=== PATIENT | female | born 1960 | race Caucasian/White ===

== ENCOUNTER 2022-09-19 20:33 | Inpatient (IN) | payer OTHER, SELFPAY ==
[2022-09-19] MEDS: SODIUM CHLORIDE 3% 500 ML 10 ML IV (15:48)
[2022-09-19 21:07] VITALS: BP 135/74; PULSE 88; O2SAT 94
[2022-09-19 21:08] VITALS: O2SAT 94
[2022-09-19 21:12] VITALS: PULSE 87; RESP 22; TEMP 37.4; O2SAT 95
[2022-09-19 22:00] VITALS: BP 113/70; PULSE 89; RESP 25; O2SAT 91
[2022-09-19 22:01] VITALS: PULSE 96; RESP 16; O2SAT 93
--- NOTE | 2022-09-19 22:09 | HPE_ITS ---
Date of service: 09/19/22 Time of Service: 22:09 Assessment and Plan Assessment and plan (1) Hyponatremia: Status: Acute Assessment and plan: Ms Pierson was transferred from [facility] due to her severe hyponatremia for ICU level of care. I discussed the case with Dr. Rosales and reviewed his notes. Given the patient's lack of regular medical care, we don't know the chronicity of her hyponatremia, but the acute illness and some vomiting and decreased oral intake suggest hypovolemic hyponatremia that is at least partially acute. Her very low urine sodium is consistent with this. Her naseua and loose stools cough be related to hyponatremia though they could also simply be the influenza, so it is unclear if she is sympotomatic at all. Unfortunately, during the time of transfer the sodium is went up faster than the goal of 6mEq in the first 24 hours despite a low infusion rate of 3% saline. This is likely due to some diuresis. Clearly she is at risk for rapid reversal, which is more typical in patients with alcohol use and liver disease. Given this, am am adding desmopressin to help control the diuresis as we slowly replace the sodium. I am also stopping the 3% sodium for now. My goal at this point is to get the sodicum to 125 and then leave it there until tomorrow afternoon. (2) Influenza A: Status: Acute Assessment and plan: Influenza A positive, but she has been sick for over a week already. SHe is here for the low sodium, and it not having severe symptom from the flu. Given this, I will not treat with tamilfu. However she does have an exam and CXR consistent with possible COPD, and her cough and chest tightness is her main complaint. GIven this, I will trial albuterol/ipratropium nebs and treat with oral prednisone. (3) Alcohol use disorder: Status: Acute Assessment and plan: Her alcohol use is constistent with AUD. She is ambivalent aboutg stopping. We discussed options to help. SHe is at risk for alcohol withdrawal but has not shown signs of this yes. MOnitor on CIWA. (4) Smoker: Status: Acute Assessment and plan: precontemplative. She requests nicotene inhaler for now. (5) Alcoholic hepatitis: Status: Acute Assessment and plan: She has signs of mild alcholic hepatitis. Follow. (6) DVT prophylaxis: Status: Acute Assessment and plan: LMWH (7) Discharge planning issues: Status: Acute Assessment and plan: She is stable in the ICU for sever hyponatremia monitoring. History of Present Illness History of Present Illness Chief Complaint: cough, fever, malaise Narrative: 62 yo smoker and daily alcohol drinker who has not seen a medical provider in 4- 5 years who presented to [facility] emergency room this afternoon for 8-9 days of cough feverishness, and post-tussive emesis. Her symptoms started with congestion and rhinorrhea, headache, and cough. Headache and nasal symptom improved, but cough getting worse. She feels like her chest is full and she can't bring it up, though she doesn't feel short of breath when she isn't coughing. When she vomits after coughing, it is watery, no blood or coffee grounds. She has had 2-3 loose stools/day. No blood or melena. She denies any abdominal pain, though she has some general body aches. She has very little appetites, she has been drinking fluids but she hasn't had much to eat, even crackers are hard to eat. Regarding her alcohol, she drinks an average of 6 beers a night, a little less since she has been sick. She denies any history of severe withdrawal or seizures. She has had sober episodes of 6 months and 5 years in the past, but she doesn't want to quit now. She also denies any history of low sodium. Pt was given 25mL 3% saline after 500mL normal saline, then continued on 10mL/hr. Sodium went up to 113, so 3% saline was cut to 2.5mL/hr. After another hour the sodium was 109 again, so the patient was placed back on 10mL/hr 3% saline since then. Review of Systems Constitutional Constitutional: Reports as per HPI, Reports body ache(s), Denies chills, Reports lethargy and Reports poor appetite Eyes Eyes: Denies change in vision and Denies irritation ENT Ears, Nose, Mouth, and Throat: Reports as per HPI, Denies dizziness and Denies sore throat Cardiovascular Cardiovascular: Denies chest pain, Denies leg edema, Denies palpitations and Reports dyspnea on exertion Respiratory Respiratory: Denies hemoptysis and Reports dyspnea on exertion Gastrointestinal Gastrointestinal: Reports as per HPI, Denies abdominal pain, Denies melena, Denies hematochezia and Denies heartburn Genitourinary Genitourinary: Denies hematuria, Denies dysuria and Denies urinary incontinence Integumentary/Breasts Skin/Breast: Denies rash and Denies skin ulcer Neurologic Neurologic: Denies abnormal movements, Denies behavioral changes, Denies dizziness, Denies localized weakness, Denies convulsions, Denies sensory deficit and Denies tremor(s) Psychiatric Psychiatric: Denies behavioral changes and Denies mood swings Endocrine Endocrine: Denies palpitations Hematologic/Lymphatic Hematologic/Lymphatic: Denies easy bleeding PFSH All Active Problems (Updated 09/19/22 @ 23:31 by Kevin Foster) Discharge planning issues (Acute) DVT prophylaxis (Acute) Alcoholic hepatitis (Acute) Smoker (Acute) Hyponatremia (Acute) Alcohol use disorder (Acute) Influenza A (Acute) Surgical History S/P section Family History (Updated 09/19/22 @ 22:28 by Kevin Foster) Brother Heart disease 2 brothers in 40s Mother Dementia Social History (Updated 09/19/22 @ 22:30 by Kevin Foster) Smoking/Tobacco Use Status: Current every day Counseling given: provider counseling and counseling >3 minutes Smoking risk assessment performed?: Yes Alcohol Intake: current Alcohol Intake frequency: 3 or more drinks per day Alcohol type: beer Counseling given: Yes Counseling provided: reduce to 2 or less/day and support program Substance use type: does not use Additional Social history: Moved from [facility] to [facility] 2019, now living with Mother in [place] and serving as her caregiver. 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 Meds Allergies and Home Medications Allergies Allergy/AdvReac Type Severity Reaction Status Date / Time Sulfa (Sulfonamide Allergy Unverified 09/19/22 20:36 Antibiotics) Home Medications Medication Instructions Recorded Confirmed Type cholecalciferol (vitamin D3) 25 1,000 unit PO DAILY 09/19/22 09/19/22 History mcg (1,000 unit) capsule (Vitamin D3) cyanocobalamin (vitamin B-12) 25 25 mcg PO DAILY 09/19/22 09/19/22 History mcg tablet multivitamin with minerals-folic 2 tab PO DAILY 09/19/22 09/19/22 History acid 200 mcg chewable tablet (Multivitamin Gummies) Exam Narrative Exam Narrative: GEN: Alert and oriented, pleasant and cooperative, gives linear history. No acute distress at rest. HEENT: Head atraumatic. Conjunctiva clear, no icterus. PEERL, EOMI. no rhinorrhea. MMM, OP mildly streaky red, no exudate.. Neck is supple with no masses or lymphadenopathy, trachea midline LUNGS: Normal effort, but slight expiratory wheeze with deep breath, prolonged expiration. no rales. CV: RRR with no murmurs, gallops, or rubs. ABD: +BS, soft, NT/ND EXT: no cyanosis, clubbing, or edema MSK: No joint redness or swelling NEURO: CN 2-12 grossly intact. Normal movement of 4 extremities. Normal speech and coordination. no tremor or asterixis SKIN: No rashes or open wounds. PSYCH: normal mood and affect Results Imaging Chest x-ray: report reviewed (from [facility]: mild chronic air trapping with no lobar consolidation. no acute cardiopulmonary abnormality) EKG: report reviewed (From [facility] sinus, rate 84, q waves in 1 and AVL, no ST elevation) Labs 09/19/22 21:49 Labs: See notes from [facility]: Notable for hgb of 16.8, sodium 109, potassium of 3.4, ch loride of 72. AST 90, ALT 131. Creatinine of 0.69. Mg of 1.4. Urine sodium <15. u/a significant only for SG of 1010 and 1+ protein. Last Vital Signs Temp 37.4 C 09/19/22 21:12 Pulse 87 09/19/22 21:12 Resp 22 09/19/22 21:12 Pulse Ox 95 09/19/22 21:12 PAWSS Have you Ever Experienced Previous Episodes of Alcohol Withdrawal?: No Have you ever Experienced Withdrawal Seizures?: No Have you ever Experienced Delirium Tremens(DT)s?: No Result: 0 Time Spent Time spent with Patient: >75 minutes Time was spent: preparing to see the patient(eg.review tests), obtaining and/or reviewing separately otained hiistory, ordering medications,tests, procedures, referring, communicating with other health group care worker, indepentently interpreting results and counseling the patient
[2022-09-19 22:23] LABS: Anion Gap 7.3 mmol/L (3-11); BUN 6 mg/dL (7-18); CO2 27.7 mmol/L (21.0-32.0); CREATININE 0.5 mg/dL (0.55-1.02); Calcium 8.5 mg/dL (8.5-10.1); Chloride 84 mmol/L (98-107); Estimated GFR 106.64 (mL/min/1.73m2); Glucose 87 mg/dL (74-106)
[2022-09-19 22:25] LABS: Sodium 119 mmol/L (136-145)
[2022-09-19] MEDS: Albuterol/Ipratropium 3 ML UPD VIAL UPD (22:42)
[2022-09-19] MEDS: predniSONE 20 MG TAB 40 MG PO (22:42)
[2022-09-19 23:12] VITALS: PULSE 90; RESP 1; RESP 12; RESP 8; O2SAT 95
[2022-09-19] MEDS: Normal Saline Flush 10 ML SYR IVP (23:44)
[2022-09-20] VITALS (27 sets, daily range): BP systolic 95–134; BP diastolic 52–93; PULSE 69–92; RESP 2–28; TEMP 36–37.4; O2SAT 88–98
[2022-09-20 00:42] LABS: Sodium 119 mmol/L (136-145)
[2022-09-20] MEDS: Albuterol/Ipratropium 3 ML UPD VIAL UPD ×2 (02:10→23:28)
[2022-09-20 02:45] LABS: Sodium 118 mmol/L (136-145)
[2022-09-20 06:47] LABS: PHOSPHORUS 2.7 mg/dL (2.6-4.7)
[2022-09-20 06:50] LABS: ALT 85 U/L (14-59); AST 162 U/L (15-37); Albumin 2.9 g/dL (3.4-5.0); Alkaline Phosphatase 94 U/L (46-116); Anion Gap 8.9 mmol/L (3-11); BUN 6 mg/dL (7-18); Bilirubin, Total 0.3 mg/dL (0.2-1.0); CO2 25.1 mmol/L (21.0-32.0); CREATININE 0.5 mg/dL (0.55-1.02); Calcium 8.4 mg/dL (8.5-10.1); Chloride 85 mmol/L (98-107); Estimated GFR 106.64 (mL/min/1.73m2); Glucose 170 mg/dL (74-106); Total Protein 6.5 g/dL (6.4-8.2)
[2022-09-20 07:03] LABS: Potassium 2.7 mmol/L (3.5-5.1); Sodium 119 mmol/L (136-145)
[2022-09-20] MEDS: Enoxaparin 40 MG/0.4 ML SYR SC (08:02)
[2022-09-20] MEDS: DEXTROSE 5%-WATER 1,000 ML 75 ML IV (08:02)
[2022-09-20] MEDS: POTASSIUM CHLORIDE 20 MEQ/100 ML BAG 50 MEQ IVPB (08:03)
[2022-09-20] MEDS: Cholecalciferol (Vitamin D3) 1,000 UNIT TAB 1000 UNITS PO (08:04)
[2022-09-20] MEDS: Cyanocobalamin 500 MCG TAB 1000 MCG PO (08:04)
[2022-09-20] MEDS: Thiamine 100 MG TAB PO (08:04)
[2022-09-20] MEDS: Multivitamin TAB 2 TAB PO (08:04)
[2022-09-20] MEDS: predniSONE 20 MG TAB 40 MG PO (08:05)
[2022-09-20] MEDS: Potassium Chloride 20 MEQ TABCR 40 MEQ PO (08:05)
[2022-09-20] MEDS: Folic Acid 1 MG TAB PO (08:06)
--- NOTE | 2022-09-20 08:39 | INITIAL_ITS ---
- If Service Date Differs Date of service: 09/20/22 Time of Service: 08:39 Care Management Initial Assess REASON FOR HOSPITALIZATION:: Hyponatremia PAST MEDICAL HISTORY/PAST SURGICAL HISTORY:: All Active Problems (Updated 09/19/22 @ 23:31 by Kevin Foster). Discharge planning issues (Acute). DVT prophylaxis (Acute). Alcoholic hepatitis (Acute). Smoker (Acute). Hyponatremia (Acute). Alcohol use disorder (Acute). Influenza A (Acute). Surgical History . S/P section PREVIOUS FUNCTIONAL STATUS/SOCIAL/FAMILY SUPPORTS:: Haydee lives in [place], [place] and cares for her mother who has dementia. Haydee has 3 daughters. One daughter lives in [place], one in [place] and the third one is a meat puller who lives in [place]. 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 She is independent and active at baseline. CURRENT FUNCTIONAL STATUS:: Haydee was sitting up in bed when CM met with her. She is ill appearing and was coughing throughout the conversation. In addition to hyponatremia, Haydee has had Influenza A for the past week. At the time of the visit, Haydee was receiving IV potassium and was complaining of extreme burning at the site. She asked that the visit be postponed until she was more comfortable. Per providers and staff, Haydee consumes alcohol on a daily basis and does not wish to stop. 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 CM returned and met with Haydee a second time. Her IV was more comfortable and she was more conversant than previously. CM asked about Haydee's alcohol consumption and her desire to seek treatment. She stated that she does not feel that her drinking is a problem at this time. She admitted that during Cov when she was essentially quarantined for months with a gentelman she was caring for, it had been a problem. She informed NOELLE that she is scheduled for an intake appointment at [facility] in [place] next week as she is feeling stress with the responsibility of caring for her mother without much assistance. Her mother has [facility] high highest and Haydee is paid through [employer] to care for her. Additional caregivers were hired through [employer] but have not ever iniated services and it has been over 3 months. Haydee has 7 siblings and plans to have a family meeting to encourage them to assist with their mother's care, at least for a few hours a week. ADVANCE DIRECTIVES:: none on file Has patient been provided with info about the portal/API?: Yes Did the patient sign up for the portal?: No CODE STATUS:: Full Code INSURANCE COVERAGE / FINANCIAL ISSUES:: [employer] CURRENT HOME/COMMUNITY SERVICES/EQUIPMENT:: Food [place] and [employer] Whe[employer]. Mother has [facility] high highest through [facility] and Haydee is her paid caregiver PRIMARY CARE PHYSICIAN:: none. has not seen a physician in 4-5 years POTENTIAL DISCHARGE NEEDS:: needs to establish with a PCP. Possible treatment for Alcohol use disorder PATIENT/FAMILY EDUCATION NEEDS:: Review of discharge instructions, activity, limitations, follow up plan, discuss Ask Me Three TRANSPORTATION:: via private vehicle with friend/family PLAN:: Anticipate Haydee will be discharged home with no new services when medically cleared by provider. She will follow up with the PCP appointment that will be scheduled for her and the plan of care as prescribed. She will transport via [facility] vs private vehicle with family. CM will follow and assess for discharge planning concerns.
[2022-09-20 08:40] LABS: Lab Add On Test DONE
--- NOTE | 2022-09-20 09:07 | PGE_ITS ---
Date of Service Date of service: 09/20/22 Time of Service: 09:09 Assessment and Plan Assessment and plan (1) Hyponatremia: Status: Acute Assessment and plan: Hypertonic saline already d/c'ed. On DDAVP. On D5W this am since sodium is 119. Monitor sodiums Q4 Hrs. Recheck chemistry at 10 am to assess if D5W can be stopped. We are going to find out her baseline sodium from [facility] if they have that information. (2) Influenza A: Status: Acute Assessment and plan: Continue nebs, prednisone. Add mucinex, tessalon, cepacol. Procalcitonin is pending, but the patient does describe purulent sputum - will add doxycycline/ceftriaxone. Add acapella. Obtain sputum cx. (3) Alcoholic hepatitis: Status: Acute Assessment and plan: Check PT and calculate discriminant function score. (4) Alcohol use disorder: Status: Acute Assessment and plan: Monitor on CIWA. Check B12/folate levels. BMI of 18 kg/m2 - c/s nutrition. (5) Smoker: Status: Acute Assessment and plan: Continue nicotrol inhaler. (6) DVT prophylaxis: Status: Acute Assessment and plan: LMWH (7) Discharge planning issues: Status: Acute Assessment and plan: Full code Keep in ICU. Total Critical Care Time 40 minutes. Subjective Subjective Interval history since last seen: Haydee is reporting cough productive of green sputum which has been difficult to bring up and a sore throat. She denies dizziness, headache, visual changes, chest pain, shortness of breath, nausea. She has a hard time swallowing pills. She requests another ensure clear. Exam Narrative Exam Narrative: General: Pleasant middle-aged female who does not look obviously malnourished, A&Ox3, eating breakfast, coughing, on RA HEENT: EOMI, MMM Heart: RRR, no m/r/g Lungs: Coarse breath sounds B Abdomen: soft, nontender, nondistended Extremities: no edema BLEs, dry skin Objective Last Vital Signs Temp 36.9 C 09/20/22 08:00 Pulse 69 09/20/22 08:00 Resp 20 09/20/22 08:00 BP 130/93 H 09/20/22 08:00 Pulse Ox 96 09/20/22 08:00 Laboratory Results - last 24 hr 09/19/22 09/20/2209/20/23 22:00 00:20 02:22 Sodium 119 L* 119 L* 118 L* Potassium 4.0 Chloride 84 L Carbon Dioxide 27.7 Anion Gap 7.3 BUN 6 L Creatinine 0.5 L Est GFR (CKD-EPI 2020) 106.64 Glucose 87 Calcium 8.5 Phosphorus Magnesium Total Bilirubin AST ALT Alkaline Phosphatase Total Protein Albumin Add-On Test Request 09/20/22 09/20/22 09/20/22 05:20 05:20 05:20 Sodium 119 L* Cancelled Potassium 2.7 L* D Chloride 85 L Carbon Dioxide 25.1 Anion Gap 8.9 BUN 6 L Creatinine 0.5 L Est GFR (CKD-EPI 2020) 106.64 Glucose 170 H Calcium 8.4 L Phosphorus 2.7 Magnesium 2.0 Total Bilirubin 0.3 AST 162 H ALT 85 H Alkaline Phosphatase 94 Total Protein 6.5 Albumin 2.9 L Add-On Test Request 09/20/22 05:20 Sodium Potassium Chloride Carbon Dioxide Anion Gap BUN Creatinine Est GFR (CKD-EPI 2020) Glucose Calcium Phosphorus Magnesium Total Bilirubin AST ALT Alkaline Phosphatase Total Protein Albumin Add-On Test Request DONE PAWSS Have you Ever Experienced Previous Episodes of Alcohol Withdrawal?: No Have you ever Experienced Withdrawal Seizures?: No Have you ever Experienced Delirium Tremens(DT)s?: No Result: 0 Multi-Disciplinary Checklist Lines/Tubes CENTRAL LINE: no ARTERIAL LINE: no TRAN: no ENDOTRACHEAL TUBE: no ICU Maintenance GLUCOSE 140-180mg/dL: yes NUTRITION AT GOAL: no, Reason/Intervention: nutrition consulted PRESSURE ULCER: no RESTRAINTS: no ANTIBIOTICS(if yes, consider Stewardship): Yes Social Issues FAMILY UPDATED: no, Reason/Intervention: Patient able to update family PT/OT: no, GOALS/DISPOSITION/PROCEDURE TECH: yes CODE STATUS: Full Prophylaxis DVT PROPHYLAXIS: yes GI PROPHYLAXIS: yes, Indication: on steroids - pepcid Time Spent with Patient Time Spent with Patient: 35-49 minutes Time was spent: preparing to see the patient(eg.review tests), obtaining and/or reviewing separately otained hiistory, ordering medications,tests, procedures, referring, communicating with other health memory care program resident, indepentently interpreting results, counseling the patient and care coordination
[2022-09-20 09:18] LABS: Procalcitonin 0.4 ng/mL
[2022-09-20] MEDS: guaiFENesin 600 MG TABCR PO ×2 (09:43→19:58)
[2022-09-20] MEDS: cefTRIAXone 1 GM/50 ML BAG IVPB (09:43)
[2022-09-20] MEDS: Benzonatate 200 MG CAP PO ×3 (09:43→19:58)
[2022-09-20] MEDS: Famotidine 20 MG TAB PO (09:43)
[2022-09-20 10:16] LABS: Anion Gap 9.3 mmol/L (3-11); BUN 6 mg/dL (7-18); CO2 24.7 mmol/L (21.0-32.0); CREATININE 0.7 mg/dL (0.55-1.02); Calcium 8.2 mg/dL (8.5-10.1); Chloride 85 mmol/L (98-107); Estimated GFR 98.34 (mL/min/1.73m2); Glucose 213 mg/dL (74-106)
[2022-09-20 10:18] LABS: Sodium 119 mmol/L (136-145)
[2022-09-20 10:21] LABS: INR 1.1 (0.9-1.1); Prothrombin Time 11.1 sec (9.3-11.0)
[2022-09-20] MEDS: DOXYCYCLINE 100 MG in Normal Saline 100 ML IVPB ×2 (10:28→22:07)
[2022-09-20 15:00] LABS: Anion Gap 8.6 mmol/L (3-11); BUN 7 mg/dL (7-18); CO2 23.4 mmol/L (21.0-32.0); CREATININE 0.5 mg/dL (0.55-1.02); Calcium 8.1 mg/dL (8.5-10.1); Chloride 84 mmol/L (98-107); Estimated GFR 106.64 (mL/min/1.73m2); Glucose 123 mg/dL (74-106); Potassium 3.5 mmol/L (3.5-5.1)
[2022-09-20 15:11] LABS: Sodium 116 mmol/L (136-145)
[2022-09-20] MEDS: guaiFENesin/CODEINE PHOSPHATE 10 ML CUP PO (18:22)
[2022-09-20 18:41] LABS: Anion Gap 7.6 mmol/L (3-11); BUN 7 mg/dL (7-18); CO2 23.4 mmol/L (21.0-32.0); CREATININE 0.6 mg/dL (0.55-1.02); Calcium 8.1 mg/dL (8.5-10.1); Chloride 83 mmol/L (98-107); Estimated GFR 102.06 (mL/min/1.73m2); Glucose 131 mg/dL (74-106); Potassium 3.6 mmol/L (3.5-5.1)
[2022-09-20 18:46] LABS: Sodium 114 mmol/L (136-145)
[2022-09-20] MEDS: Normal Saline Flush 10 ML SYR IVP (19:58)
[2022-09-20] MEDS: SODIUM CHLORIDE 3% 500 ML 13 ML IV (20:02)
[2022-09-20 22:20] LABS: Anion Gap 8.5 mmol/L (3-11); BUN 6 mg/dL (7-18); CO2 23.5 mmol/L (21.0-32.0); CREATININE 0.5 mg/dL (0.55-1.02); Calcium 8.1 mg/dL (8.5-10.1); Chloride 82 mmol/L (98-107); Estimated GFR 106.64 (mL/min/1.73m2); Glucose 153 mg/dL (74-106); Potassium 3.6 mmol/L (3.5-5.1)
[2022-09-20 22:25] LABS: Sodium 114 mmol/L (136-145)
[2022-09-21] VITALS (45 sets, daily range): BP systolic 106–151; BP diastolic 66–125; PULSE 66–92; RESP 17–31; TEMP 36.1–36.5; O2SAT 92–99; BMI 18.8
[2022-09-21] MEDS: LORazepam 1 MG TAB PO/SL ×2 (00:51→10:22)
[2022-09-21 02:22] LABS: Anion Gap 5.3 mmol/L (3-11); BUN 5 mg/dL (7-18); CO2 25.7 mmol/L (21.0-32.0); CREATININE 0.4 mg/dL (0.55-1.02); Calcium 7.8 mg/dL (8.5-10.1); Chloride 84 mmol/L (98-107); Estimated GFR 112.53 (mL/min/1.73m2); Glucose 126 mg/dL (74-106); Potassium 3.2 mmol/L (3.5-5.1)
[2022-09-21 02:23] LABS: Sodium 115 mmol/L (136-145)
[2022-09-21 05:54] LABS: Anion Gap 6.2 mmol/L (3-11); BUN 4 mg/dL (7-18); CO2 25.8 mmol/L (21.0-32.0); CREATININE 0.4 mg/dL (0.55-1.02); Calcium 8.2 mg/dL (8.5-10.1); Chloride 84 mmol/L (98-107); Estimated GFR 112.53 (mL/min/1.73m2); Glucose 120 mg/dL (74-106); Magnesium 1.3 mg/dL (1.8-2.4)
[2022-09-21 05:55] LABS: Sodium 116 mmol/L (136-145)
[2022-09-21 05:56] LABS: Potassium 2.9 mmol/L (3.5-5.1)
[2022-09-21 06:24] LABS: Vitamin B12 1377 pg/mL (193-986)
--- NOTE | 2022-09-21 06:40 | NUR.NOTE ---
Nursing Note: Breakfast request called to kitchen. (Apple-Fruited Lao Yogurt-Rice Krispies)
[2022-09-21 08:03] LABS: ALT 62 U/L (14-59); AST 74 U/L (15-37); Albumin 2.7 g/dL (3.4-5.0); Alkaline Phosphatase 82 U/L (46-116); Bilirubin, Direct 0.2 mg/dL (0.0-0.2); Bilirubin, Total 0.3 mg/dL (0.2-1.0)
--- NOTE | 2022-09-21 09:03 | ANES.PREOP_ITS ---
General Info Date of Service Date Performed: 09/21/22 Height: 5 ft Weight: 43.9 kg Body Mass Index (BMI): 18.8 Meds Allergies and Home Medications Allergies Allergy/AdvReac Type Severity Reaction Status Date / Time Sulfa (Sulfonamide Allergy Unverified 09/19/22 20:36 Antibiotics) Home Medication Medication Instructions Recorded cholecalciferol (vitamin D3) 25 1,000 unit PO DAILY 09/19/22 mcg (1,000 unit) capsule (Vitamin D3) cyanocobalamin (vitamin B-12) 25 25 mcg PO DAILY 09/19/22 mcg tablet multivitamin with minerals-folic 2 tab PO DAILY 09/19/22 acid 200 mcg chewable tablet (Multivitamin Gummies) Current Visit Medications: Current Medications Generic Name Dose Route Start Last Admin Trade Name Freq PRN Reason Stop Dose Admin Acetaminophen 0 mg 09/19/22 21:50 Acetaminophen 325 Mg Tab PO Q4H PRN PRN Albuterol/Ipratropium 3 ml 09/19/22 22:02 09/20/22 23:28 Albuterol/Ipratropium 3 Ml Upd Vial UPD 3 ml Q6H PRN PRN Administration Benzocaine/Menthol 1 each 09/20/22 09:08 09/20/22 15:49 Benzocaine/Menthol Lozg 18/Box SUC 1 each Q6H PRN PRN Administration Benzonatate 200 mg 09/20/22 14:00 09/20/22 19:58 Benzonatate 200 Mg Cap PO 200 mg TID HEATHER Administration Cholecalciferol 1,000 units 09/20/22 08:30 09/20/22 08:04 Cholecalciferol (Vitamin D3) 1,000 Unit Tab PO 1,000 units DAILY HEATHER Administration Cyanocobalamin 1,000 mcg 09/20/22 08:30 09/20/22 08:04 Cyanocobalamin 500 Mcg Tab PO 1,000 mcg DAILY HEATHER Administration Desmopressin Acetate 2 mcg 09/20/22 19:15 09/21/22 03:28 Desmopressin 40 Mcg/10 Ml Vial IV 2 mcg Q8H HEATHER Administration Dimethicone/Zinc Oxide 0 gm 09/19/22 20:33 Leroy Protect Cream 142 Gm Tube TP PRN PRN Enoxaparin Sodium 40 mg 09/20/22 08:30 09/20/22 08:02 Enoxaparin 40 Mg/0.4 Ml Syr SC 40 mg Q24H HEATHER Administration Famotidine 20 mg 09/21/22 08:30 Famotidine 20 Mg Tab PO DAILY HEATHER Folic Acid 1 mg 09/20/22 08:30 09/20/22 08:06 Folic Acid 1 Mg Tab PO 09/26/22 08:31 1 mg QAM HEATHER Administration Guaifenesin 600 mg 09/20/22 20:00 09/20/22 19:58 Guaifenesin 600 Mg Tabcr PO 600 mg BID HEATHER Administration Guaifenesin/Codeine Phosphate 10 ml 09/20/22 14:57 09/20/22 18:22 Guaifenesin/Codeine Phosphate 10 Ml Cup PO 10 ml Q4H PRN PRN Administration Doxycycline Hyclate 100 mg/ 100 mls @ 100 mls/hr 09/20/22 10:00 09/20/22 23:37 Sodium Chloride IVPB Infused Q12H HEATHER Infusion Ceftriaxone Sodium/Dextrose 1 gm in 50 mls @ 100 mls/hr 09/20/22 10:00 09/20/22 11:27 Rocephin IVPB Infused Q24H HEATHER Infusion Sodium Chloride (Hypertonic) 500 mls @ 13 mls/hr 09/20/22 19:15 09/20/22 20:02 Sodium Chloride 3% IV 09/21/22 19:14 13 mls/hr INFUSION HEATHER Administration Magnesium Sulfate 4 gm in 100 mls @ 25 mls/hr 09/21/22 07:44 IVPB 09/21/22 11:43 NOW ONE Potassium Chloride 20 meq in 100 mls @ 50 mls/hr 09/21/22 07:44 IVPB 09/21/22 09:43 NOW ONE Lorazepam 0 mg 09/19/22 21:50 09/21/22 00:51 Lorazepam 1 Mg Tab PO/SL 1 mg DIRECTED PRN Administration Magnesium Chloride 64 mg 09/21/22 08:30 Magnesium Chloride 64 Mg Tabcr PO BID HEATHER Multivitamins 2 tab 09/20/22 08:30 09/20/22 08:04 Multivitamin Tab PO 2 tab DAILY HEATHER Administration Nicotine 30 cartridge 09/19/22 21:57 09/19/22 22:43 Nicotine 10 Mg/Cartridge 30 Cart/Pkg IH 1 cartridge DIRECTED PRN Administration Potassium Chloride 40 meq 09/21/22 08:30 Potassium Chloride Liquid 20 Meq Pkt PO BID HEATHER Prednisone 40 mg 09/20/22 08:30 09/20/22 08:05 Prednisone 20 Mg Tab PO 40 mg DAILY HEATHER Administration Sodium Chloride 0 ml 09/19/22 23:03 09/20/22 19:58 Normal Saline Flush 10 Ml Syr IVP 20 ml PRN PRN Administration Thiamine HCl 100 mg 09/20/22 08:30 09/20/22 08:04 Thiamine 100 Mg Tab PO 09/26/22 08:31 100 mg QAM HEATHER Administration PFSH Active Problems Active Problems: Problem Status Onset Code Hyponatremia E87.1 Alcohol use disorder F10.90 Influenza A J10.1 Alcoholic hepatitis K70.10 Smoker F17.200 Discharge planning issues Z02.9 DVT prophylaxis Z29.9 Surgical History Surgical History S/P section Tobacco Smoking/Tobacco Use Status: Current every day Counseling given: provider counseling and counseling >3 minutes Alcohol Alcohol Intake: current Alcohol intake frequency: 3 or more drinks per day Alcohol type: beer Counseling provided: reduce to 2 or less/day and support program Substance Use Substance use type: does not use Vital Signs and Lab Results Vital Signs Most Recent Vital Signs in EMR: Most Recent Vital Signs Temp Pulse Resp BP Pulse Ox 36.1 C L 77 24 132/71 93 09/21/22 08:00 09/21/22 08:00 09/21/22 08:01 09/21/22 08:00 09/21/22 08:01 Lab Results 09/21/22 05:25 Blood Type / Crossmatch: No Data to Display Complete Blood Count: No Data to Display Complete Metabolic Panel: Sodium 116 mmol/L (136-145) L* 09/21/22 05:25 Potassium 2.9 mmol/L (3.5-5.1) L 09/21/22 05:25 Chloride 84 mmol/L (98-107) L 09/21/22 05:25 Carbon Dioxide 25.8 mmol/L (21.0-32.0) 09/21/22 05:25 BUN 4 mg/dL (7-18) L 09/21/22 05:25 Creatinine 0.4 mg/dL (0.55-1.02) L 09/21/22 05:25 Est GFR (CKD-EPI 2020) 112.53 (mL/min/1.73m2) 09/21/22 05:25 Magnesium 1.3 mg/dL (1.8-2.4) L 09/21/22 05:25 Calcium 8.2 mg/dL (8.5-10.1) L 09/21/22 05:25 Albumin 2.7 g/dL (3.4-5.0) L 09/21/22 05:25 Glucose 120 mg/dL (74-106) H 09/21/22 05:25 Liver Function Panel: Alanine Aminotransferase (ALT/SGPT) 62 U/L (14-59) H 09/21/22 0 5:25 Aspartate Amino Transf (AST/SGOT) 74 U/L (15-37) H 09/21/22 05: 25 Coagulation Panel: INR International Normalized Ratio 1.1 (0.9-1.1) 09/20/22 09:5 8 Prothrombin Time 11.1 sec (9.3-11.0) H 09/20/22 09:58 Cardiac Panel: No Data to Display Arterial Blood Gas: No Data to Display Venous Blood Gas: 2 No Data to Display Pancreas Panel: No Data to Display Thyroid Panel: No Data to Display Infectious Disease: No Data to Display Blood Cultures: No Data to Display Toxicology Panel: No Data to Display Anesthesia Assessment and Plan Anesthesia History Personal History: No History of Anesthesia Complications Family History: No Family History of Anesthesia Complications Exercise Tolerance Exercise Tolerance: Metabolic Equivalents>4 Pertinent Negatives Pertinent Negatives: No Symptoms of GERD, No Major Cardiovascular Symptoms or Complaints and No History of CVA/TIA Cardiac & Pulmonary Exam Cardiac Exam: Normal S1/S2 Heart Sounds Pulmonary Exam: Active Cough or Cold (Positive influenza, on droplet precautions) Implantable Cardiac Device Does patient have a Pacemaker or an ICD?: No Airway Exam Known Difficult Airway: No Mallampati Class: 2 Mouth Opening: Normal (> 3cm) Thyromental Distance: Greater than 3 cm Neck Range of Motion: Full ROM Neck Circumference: Normal Teeth Condition: Normal Dentition ASA Classification ASA Score: ASA 3 Emergency Case?: Yes NPO Status NPO Status: NPO Clears >2 hours, Solids >8 hours Anesthesia Plan Resuscitation Status: Full Code Anesthesia Technique: General Anesthesia Airway Planned: Natural Airway Monitors Used: Standard Monitors and POCUS Preoperative Comments:: Preop for placement of Central Venous Catheter being requested by the hospitalist, Dr. Gaines, for hyponatremia.
--- NOTE | 2022-09-21 09:05 | W.ANESVAS ---
Central Venous Line Placement Date Performed: 09/21/22 Procedure Time: 11:16 Procedure Location: Intensive Care Unit ([facility]) Requesting Provider: Heather Gaines Standard Monitors Applied: ECG, Blood Pressure, SpO2 and See EMR for corresponding vital signs Pt. Position: Supine Trendelenburg Timeout Performed: Yes Sedation Given (Indicate Dose Given): Directed by Requesting Provider (Patient received her PO PRN for anxiety. ) Patient Mental Status: Sedate with meaningful communication Sterility: Hand Hygiene, Surgical Cap, Surgical Mask, Sterile Gloves, Sterile Drape/Sheet, Sterile Gown, Eye Protection and Chlorhexidine Laterality: Right Insertion Site: Internal Jugular (IJ) Central Line Type: 7 Togolese and Triple Lumen Catheter Insertion Procedure: 1% Lidocaine to skin and subcutaneous tissue with 25g needle, Vessel accessed with needle, Guidewire placed with ease, Extension tubing fills with blood, then empties easily with gravity, Dermatotomy (skin blas) made with scalpel, Dilator placed without resistance, Introducer/Catheter placed without resistance, Guidewire removed and Claves placed, blood withdrawn, ports flushed and clamped Dressing: Sorbaview Dressing Placed, Chlorhexidine Dressing, BioPatch and Sutured in Place Catheter Depth at Skin (cm): 15 Placement Confirmation: Confirmation X-Ray Ordered Ultrasound: Sterile probe cover and gel used Ultrasound Image Saved?: Yes Number of Attempts (See previous attempts in note section): 2 Procedure Tolerated: No Complications and Patient tolerated well Procedure Outcome: Successful Performed By: Jones Eubanks
[2022-09-21] MEDS: guaiFENesin/CODEINE PHOSPHATE 10 ML CUP PO (10:22)
--- NOTE | 2022-09-21 11:00 | DI.RAD_ITS ---
Exam(s) XR PORTABLE CHEST AP POST LINE EXAM: XR PORTABLE CHEST AP POST LINE CLINICAL HISTORY: central line placement. TECHNIQUE: 2D digital imaging was performed. COMPARISON: No exams were available for comparison FINDINGS: Single AP portable view. Heart size is upper normal. The mediastinum is not widened. Lungs are clear. No infiltrates nor obvious pleural effusions. Right jugular central line noted. Its distal tip is in the lower SVC. No pneumothorax. IMPRESSION: No acute pulmonary findings on this single AP portable view of the chest. Jugular line distal tip is in the SVC which is satisfactory position. DATA REPOSITORY: RADIATION DOSE DELIVERED:
[2022-09-21] MEDS: Thiamine 100 MG TAB PO (11:30)
[2022-09-21] MEDS: Famotidine 20 MG TAB PO (11:30)
[2022-09-21] MEDS: DOXYCYCLINE 100 MG in Normal Saline 100 ML IVPB ×2 (11:30→22:18)
[2022-09-21] MEDS: MAGNESIUM SULFATE 4 GM/100 ML BAG IVPB (11:30)
--- NOTE | 2022-09-21 11:36 | DI.VRAD_ITS ---
PROCEDURE INFORMATION: Exam: XR Chest Exam date and time: 09/21/2022 11:06 AM Age: 62 years old Clinical indication: Other: Central line placement TECHNIQUE: Imaging protocol: Radiologic exam of the chest. Views: 1 view. COMPARISON: No relevant prior studies available. FINDINGS: Tubes, catheters and devices: Central line terminates in the superior vena cava. Lungs: Unremarkable. No consolidation. Pleural spaces: Unremarkable. No pleural effusion. No pneumothorax. Heart/Mediastinum: Unremarkable. No cardiomegaly. Bones/joints: Unremarkable. IMPRESSION: Central line terminates in the superior vena cava. Dictated and Authenticated by: Ilana Farrell MD. Ordering:DANIAL Goldman MD
[2022-09-21] MEDS: cefTRIAXone 1 GM/50 ML BAG IVPB (11:39)
[2022-09-21] MEDS: Enoxaparin 40 MG/0.4 ML SYR SC (11:43)
[2022-09-21] MEDS: Magnesium Chloride 64 MG TABCR PO ×2 (11:43→20:25)
[2022-09-21] MEDS: Benzonatate 200 MG CAP PO ×3 (11:43→20:25)
[2022-09-21] MEDS: Potassium Chloride Liquid 20 MEQ PKT 40 MEQ PO ×2 (11:44→20:25)
[2022-09-21] MEDS: Multivitamin TAB 2 TAB PO (11:44)
[2022-09-21] MEDS: guaiFENesin 600 MG TABCR PO ×2 (11:44→20:25)
[2022-09-21] MEDS: predniSONE 20 MG TAB 40 MG PO (11:45)
[2022-09-21] MEDS: Folic Acid 1 MG TAB PO (11:45)
[2022-09-21] MEDS: Cholecalciferol (Vitamin D3) 1,000 UNIT TAB 1000 UNITS PO (11:45)
[2022-09-21] MEDS: Cyanocobalamin 500 MCG TAB 1000 MCG PO (11:46)
[2022-09-21] MEDS: POTASSIUM CHLORIDE 20 MEQ/100 ML BAG 50 MEQ IVPB (11:51)
[2022-09-21 12:19] LABS: Anion Gap 4.5 mmol/L (3-11); BUN 4 mg/dL (7-18); CO2 27.5 mmol/L (21.0-32.0); CREATININE 0.4 mg/dL (0.55-1.02); Calcium 8.1 mg/dL (8.5-10.1); Chloride 88 mmol/L (98-107); Estimated GFR 112.53 (mL/min/1.73m2); Glucose 98 mg/dL (74-106)
[2022-09-21 12:20] LABS: Potassium 2.8 mmol/L (3.5-5.1); Sodium 120 mmol/L (136-145)
[2022-09-21 13:52] LABS: Anion Gap 6.9 mmol/L (3-11); BUN 4 mg/dL (7-18); CO2 26.1 mmol/L (21.0-32.0); CREATININE 0.5 mg/dL (0.55-1.02); Calcium 8.1 mg/dL (8.5-10.1); Chloride 85 mmol/L (98-107); Estimated GFR 106.64 (mL/min/1.73m2); Glucose 143 mg/dL (74-106); Potassium 3.3 mmol/L (3.5-5.1)
[2022-09-21 14:03] LABS: Sodium 118 mmol/L (136-145)
--- NOTE | 2022-09-21 14:38 | PGE_ITS ---
Date of Service Date of service: 09/21/22 Time of Service: 09:20 Assessment and Plan Assessment and plan (1) Hyponatremia: Status: Acute Assessment and plan: Hypertonic saline was restarted last night. Continue DDAVP + hypertonic saline while checking sodiums every 6 hrs. The chemistries should be checked peripherally. Baseline sodium is anywhere between 128-135, per review of prior records from [facility]. (2) Influenza A: Status: Acute Assessment and plan: With suspected superimposed bacterial bronchitis. Continue nebs, prednisone, mucinex, tessalon, cepacol. Encourage pulmonary toilet. (3) Alcoholic hepatitis: Status: Acute Assessment and plan: Maddrey score of 0.8 indicates a good prognosis.. (4) Alcohol use disorder: Status: Acute Assessment and plan: Monitor on CIWA. Per daughter, patient does have a h/o withdrawal, which was prolonged. As her CIWA score started to increase, will switch to phenobarbital protocol. BMI of 18 kg/m2 - c/s nutrition. (5) Smoker: Status: Acute Assessment and plan: Continue nicotrol inhaler. (6) DVT prophylaxis: Status: Acute Assessment and plan: LMWH (7) Discharge planning issues: Status: Acute Assessment and plan: Full code Keep in ICU. Total Critical Care Time 40 minutes. Discussed with daughter. Subjective Subjective Interval history since last seen: Ms Pierson denies pain, feels a little short of breath. States thought her cough was getting better but then again woke up with it this morning. Denies n/v. Nursing reports that the patient has had difficulty tolerating IV infusion of hypertonic saline. Discussed with anesthesia: central line placement was recommended and placed by Jones Eubanks CRNA. Exam Narrative Exam Narrative: General: Pleasant middle-aged female, anxious, A&Ox3, coughing, on RA HEENT: EOMI, MMM Heart: RRR, no m/r/g Lungs: Coarse breath sounds B, coughing Abdomen: soft, nontender, nondistended Extremities: no edema BLEs, dry skin Objective Last Vital Signs Temp 36.2 C L 09/21/22 13:16 Pulse 77 09/21/22 08:00 Resp 24 09/21/22 13:16 BP 132/71 09/21/22 08:00 Pulse Ox 93 09/21/22 13:16 Laboratory Results - last 24 hr 09/20/22 09/20/22 09/20/22 14:28 18:25 22:00 Sodium 116 L* 114 L* 114 L* Potassium 3.5 3.6 3.6 Chloride 84 L 83 L 82 L Carbon Dioxide 23.4 23.4 23.5 Anion Gap 8.6 7.6 8.5 BUN 7 7 6 L Creatinine 0.5 L 0.6 0.5 L Est GFR (CKD-EPI 2020) 106.64 102.06 106.64 Glucose 123 H 131 H 153 H Calcium 8.1 L 8.1 L 8.1 L Magnesium Total Bilirubin Conjugated Bilirubin AST ALT Alkaline Phosphatase Total Protein Albumin Vitamin B12 Folate 09/21/22 09/21/22 09/21/22 02:05 05:25 05:25 Sodium 115 L* 116 L* Potassium 3.2 L 2.9 L Chloride 84 L 84 L Carbon Dioxide 25.7 25.8 Anion Gap 5.3 6.2 BUN 5 L 4 L Creatinine 0.4 L 0.4 L Est GFR (CKD-EPI 2020) 112.53 112.53 Glucose 126 H 120 H Calcium 7.8 L 8.2 L Magnesium 1.3 L Total Bilirubin Conjugated Bilirubin AST ALT Alkaline Phosphatase Total Protein Albumin Vitamin B12 1377 H Folate 13.0 09/21/22 09/21/22 09/21/22 05:25 11:58 13:25 Sodium 120 L* 118 L* Potassium 2.8 L* 3.3 L Chloride 88 L 85 L Carbon Dioxide 27.5 26.1 Anion Gap 4.5 6.9 BUN 4 L 4 L Creatinine 0.4 L 0.5 L Est GFR (CKD-EPI 2020) 112.53 106.64 Glucose 98 143 H Calcium 8.1 L 8.1 L Magnesium Total Bilirubin 0.3 Conjugated Bilirubin 0.2 AST 74 H ALT 62 H Alkaline Phosphatase 82 Total Protein 6.0 L Albumin 2.7 L Vitamin B12 Folate PAWSS Have you Ever Experienced Previous Episodes of Alcohol Withdrawal?: No Have you ever Experienced Withdrawal Seizures?: No Have you ever Experienced Delirium Tremens(DT)s?: No Result: 0 Time Spent with Patient Time Spent with Patient: 35-49 minutes Time was spent: preparing to see the patient(eg.review tests), obtaining and/or reviewing separately [facility], ordering medications,tests, procedures, referring, communicating with other health patient care technician, indepentently interpreting results, counseling the patient and care coordination
[2022-09-21] MEDS: PHENobarbital 110 MG in Normal Saline 50 ML 100 MG IVPB (16:28)
[2022-09-21] MEDS: Normal Saline Flush 10 ML SYR IVP ×2 (17:42→19:36)
[2022-09-21 18:42] LABS: Anion Gap 7.2 mmol/L (3-11); BUN 5 mg/dL (7-18); CO2 23.8 mmol/L (21.0-32.0); CREATININE 0.5 mg/dL (0.55-1.02); Chloride 92 mmol/L (98-107); Estimated GFR 106.64 (mL/min/1.73m2); Glucose 155 mg/dL (74-106); Potassium 3.7 mmol/L (3.5-5.1)
[2022-09-21 18:46] LABS: Sodium 123 mmol/L (136-145)
[2022-09-21] MEDS: DEXTROSE 5%-WATER 1,000 ML 75 ML IV (19:00)
[2022-09-22] VITALS (32 sets, daily range): BP systolic 116–191; BP diastolic 69–110; PULSE 70–96; RESP 2–27; TEMP 36.4–36.6; O2SAT 89–99
[2022-09-22 00:45] LABS: Anion Gap 6.5 mmol/L (3-11); BUN 7 mg/dL (7-18); CO2 23.5 mmol/L (21.0-32.0); CREATININE 0.4 mg/dL (0.55-1.02); Chloride 91 mmol/L (98-107); Estimated GFR 112.53 (mL/min/1.73m2); Glucose 126 mg/dL (74-106); Potassium 4.3 mmol/L (3.5-5.1)
[2022-09-22 00:47] LABS: Sodium 121 mmol/L (136-145)
[2022-09-22] MEDS: Albuterol/Ipratropium 3 ML UPD VIAL UPD ×3 (00:55→08:40)
[2022-09-22] MEDS: Normal Saline 50 ML (03:47)
[2022-09-22 06:10] LABS: Abs Immature Grans 0.02 10^3/uL (0.0-0.06); HCT 34.2 % (36.0-46.0); HGB 12.2 g/dL (11.2-15.7); MCH 29.5 pg (27.0-33.0); MCHC 35.7 % (32.0-36.0); MCV 83 fL (80-95); MPV 10.3 fL (8.0-11.0); Platelet Count 195 10^3/uL (130-400); RBC 4.14 10^6/uL (3.93-5.22); RDW 11.3 % (11.7-14.6); RDW-SD 34.1 fL
[2022-09-22 06:27] LABS: Anion Gap 7.7 mmol/L (3-11); BUN 5 mg/dL (7-18); CO2 23.3 mmol/L (21.0-32.0); CREATININE 0.3 mg/dL (0.55-1.02); Chloride 91 mmol/L (98-107); Estimated GFR 120.61 (mL/min/1.73m2); Glucose 100 mg/dL (74-106); Magnesium 1.7 mg/dL (1.8-2.4); PHENOBARBITAL 7.2 ug/mL (15.0-40.0); Potassium 3.5 mmol/L (3.5-5.1)
[2022-09-22 06:32] LABS: Sodium 122 mmol/L (136-145)
[2022-09-22 06:42] LABS: Absolute Basophil Count 0.09 10^3/uL (0.0-0.2); Absolute Lymphocyte Count 1.48 10^3/uL (1.2-3.4); Absolute Monocyte Count 0.78 10^3/uL (0.1-0.8); Absolute Neutrophil Count 6.18 10^3/uL (1.2-6.7); Atypical Lymphocytes % 2; Diff Comment Manual Differential; RBC Morphology Normal
--- NOTE | 2022-09-22 08:42 | W.PULMCC ---
General Date of Service Date of service: 09/22/22 Time of Service: 08:00 Reason for Admission to ICU: Hyponatremia Assessment and Plan Assessment and plan (1) Hyponatremia: Status: Acute (2) Alcohol use disorder: Status: Acute (3) Alcoholic hepatitis: Status: Acute (4) Influenza A: Status: Acute (5) Smoker: Status: Acute (6) Malnutrition: Status: Acute (7) Hypomagnesemia: Status: Acute (8) Bronchitis: Status: Acute Assessment and plan: This is a 62 yo transferred from [facility] for hyponatremia of 109 (baseline 130). She is being treated with a DDAVP clamp and hypertonic saline and currently has a sodium of 122. The HTS was running only at 10cc/hr and really should be increased to around 15cc/hr in order to increase her sodium to 130 in the next 24 hours. Her withdrawal symptoms have been well controlled on the phenobarb protocol. She has influenza and do agree it is reasonable for a bacterial bronchitis as well. The doxycycline should be sufficient and do not think she needs the ceftriaxone. Recommendations Pulmonary: Smoker - recommend cessation Cardiac: No acute concerns Renal: Hyponatremia - DDAVP 2mcg q8 IV - HTS increase from 10cc/hr to 14cc/hr - electrolytes q4hr until corrected - once Na reached 128, would recommend stopping both DDAVP and HTS with a q4 hour repeat BMP - fluid restriction Hypomagnesemia - replete to 2 Hypokalemia - replete to 4 I&O: Intake & Output 09/19/22 09/20/22 09/21/22 09/22/22 23:59 23:59 23:59 23:59 Intake Total 55.75 / 275.75 1527.167 / 7829.684 7473.7286 / 2568.7286 995.6154 / 995.6154 Output Total 400 / 400 1050 / 1050 2225 / 2475 250 / 250 Balance -344.25 / -124.25 477.167 / 477.167 -56.2714 / 93.7286 745.6154 / 745.6154 Weight 44.5 kg 41.9 kg 43.9 kg Daily Fluid Goal:: even GI Nutrition: Malnutrition - nutrition consultation Date of Last Bowel Movement: 09/20/22 Infectious Disease: Influenza A - out of window for Tamiflu and not critically ill from this standpoint - total 5 day course of prednisone should be sufficient - supportive care Bronchitis - agree with doxycycline - can D/C ceftriaxone as no pneumonia - nebs prn Hematologic: No acute concerns Neurologic: EtOH Withdrawal - on phenobarb protocol Endocrine: No acute concern Lines: R IJ CVC PIV Prophylaxis: Lovenox Famotidine Code Status: Resuscitation Status Full Code Subjective Critical and life-threatening events over the past 24 hours: This is a 62 yo who is admitted to the ICU for hyponatremia (109), alcohol withdrawal and influenza A. She has a history of alcoholic hepatitis and the thought was that her hyponatremia represented beer potomania. Although no serum osmalality was measured, a urine sodium was obtained and was low (<15). She was given HTS but she overcorrected and so she was placed on a DDAVP clamp and has much more conservative Na improvements over the weekend. She is a smoker, but has not been diagnosed with COPD. She states she has had respiratory symptoms for about a month and initially thought she had COVID, but always tested negative. She is being treated with phenobarb for EtOH withdrawal and has a safe phenobarb level. She states she is feeling much better since being in the hospital. She is unsure of any neuro symptoms prior to her going to the ER that are consistent with a severe hyponatremia. She states she was drinking much less in the preceeding says prior to admission. She does have some malnutrition due to her alcoholism. Exam Narrative Exam Narrative: Gen: NAD, normal respiratory effort, thin HENT: PERRL Chest: No respiratory distress, normal appearance of chest, clear to auscultation bilaterally, mild expiratory wheezing at the bases Heart: regular rate and rhythym, no murmurs, rubs or gallops Abdomen: Non-distended, soft, non tender Extremities: No clubbing, edema, cyanosis, rashes Neuro: AAOx3 , non focal Psych: cooperative, appropriate mental affect Most Recent VS/Results Last Vital Signs Temp 36.6 C 09/22/22 07:50 Pulse 80 09/22/22 08:41 Resp 19 09/22/22 08:41 BP 141/82 H 09/22/22 07:50 Pulse Ox 96 09/22/22 08:41 Laboratory Results - last 24 hr 09/21/22 09/21/22 09/21/22 11:58 13:25 18:15 WBC RBC Hgb Hct MCV MCH MCHC RDW Plt Count MPV Immature Gran % Neutrophils % Lymphocytes % Atypical Lymphs % Monocytes % Eosinophils % Basophils % Nucleated RBC % Absolute Neutrophils Absolute Lymphocytes Absolute Monocytes Absolute Eosinophils Absolute Basophils RBC Morphology Sodium 120 L* 118 L* 123 L* Potassium 2.8 L* 3.3 L 3.7 Chloride 88 L 85 L 92 L Carbon Dioxide 27.5 26.1 23.8 Anion Gap 4.5 6.9 7.2 BUN 4 L 4 L 5 L Creatinine 0.4 L 0.5 L 0.5 L Est GFR (CKD-EPI 2020) 112.53 106.64 106.64 Glucose 98 143 H 155 H Calcium 8.1 L 8.1 L 8.0 L Magnesium Phenobarbital 09/22/22 09/22/22 09/22/22 00:26 05:15 05:15 WBC 8.70 RBC 4.14 Hgb 12.2 Hct 34.2 L MCV 83 MCH 29.5 MCHC 35.7 RDW 11.3 L Plt Count 195 MPV 10.3 Immature Gran % See Differential Neutrophils % 71.0 Lymphocytes % 15.0 Atypical Lymphs % 2 Monocytes % 9.0 Eosinophils % 0.0 Basophils % 1.0 Nucleated RBC % 0.0 Absolute Neutrophils 6.18 Absolute Lymphocytes 1.48 Absolute Monocytes 0.78 Absolute Eosinophils 0.00 Absolute Basophils 0.09 RBC Morphology Normal Sodium 121 L* 122 L* Potassium 4.3 3.5 Chloride 91 L 91 L Carbon Dioxide 23.5 23.3 Anion Gap 6.5 7.7 BUN 7 5 L Creatinine 0.4 L 0.3 L Est GFR (CKD-EPI 2020) 112.53 120.61 Glucose 126 H 100 Calcium 8.0 L 8.0 L Magnesium 1.7 L Phenobarbital 7.2 L Review of Systems All systems reviewed & are unremarkable except as noted in HPI and below Time spent with patient Time spent in Critical Care: 45 Time spent in Critical care included: Chart review, Documenting critically ill care, Time at immediate bedside and Discussing critically ill care with other medical staff
--- NOTE | 2022-09-22 08:58 | W.PM.PROGNOT ---
Date of Service Date of service: 09/22/22 Time of Service: 08:58 Assessment and Plan Assessment and plan (1) Hyponatremia: Status: Acute Assessment and plan: Suspect beer potomania. Urine sodium was 15 at [facility] - not [facility]. Sodium 122 this am. Hypertonic saline rate changed to 14 cc/hr (increased). Continue DDAVP + hypertonic saline while checking sodiums every 6 hrs. The chemistries should be checked peripherally. Baseline sodium is anywhere between 128-135, per review of prior records from [facility]. (2) Influenza A: Status: Acute Assessment and plan: With suspected superimposed bacterial bronchitis. Continue nebs, prednisone, mucinex, tessalon, cepacol. Encourage pulmonary toilet. Treat with doxycycline. D/c ceftriaxone. Discussed with Dr Box. (3) Alcoholic hepatitis: Status: Acute Assessment and plan: Maddrey score of 0.8 indicates a good prognosis.. (4) Alcohol use disorder: Status: Acute Assessment and plan: Monitor on CIWA. Per daughter, patient does have a h/o withdrawal, which was prolonged. As her CIWA score started to increase, will switch to phenobarbital protocol. BMI of 18 kg/m2 - c/s nutrition. (5) Smoker: Status: Acute Assessment and plan: Continue nicotrol inhaler. (6) DVT prophylaxis: Status: Acute Assessment and plan: LMWH (7) Discharge planning issues: Status: Acute Assessment and plan: Full code Keep in ICU. Total Critical Care Time [address] Box Subjective Subjective Interval history since last seen: Ms Pierson is doing a bit better today. She denies dizziness, chest pain, shortness of breath. Cough is getting better, she says - less harsh. Denies nausea, abdominal pain. Has not been hallucinating. Not scoring on CIWA this morning. Received a 3 dose load of phenobarbital yesterday. Exam Narrative Exam Narrative: General: Pleasant middle-aged female, significantly less anxious, A&Ox3, coughing, on RA HEENT: EOMI, MMM Heart: RRR, no m/r/g Lungs: Coarse breath sounds B, coughing Abdomen: soft, nontender, nondistended Extremities: no edema BLEs, dry skin Objective Last Vital Signs Temp 36.6 C 09/22/22 07:50 Pulse 80 09/22/22 08:41 Resp 19 09/22/22 08:41 BP 141/82 H 09/22/22 07:50 Pulse Ox 96 09/22/22 08:41 Laboratory Results - last 24 hr 09/21/22 09/21/22 09/21/22 11:58 13:25 18:15 WBC RBC Hgb Hct MCV MCH MCHC RDW Plt Count MPV Immature Gran % Neutrophils % Lymphocytes % Atypical Lymphs % Monocytes % Eosinophils % Basophils % Nucleated RBC % Absolute Neutrophils Absolute Lymphocytes Absolute Monocytes Absolute Eosinophils Absolute Basophils RBC Morphology Sodium 120 L* 118 L* 123 L* Potassium 2.8 L* 3.3 L 3.7 Chloride 88 L 85 L 92 L Carbon Dioxide 27.5 26.1 23.8 Anion Gap 4.5 6.9 7.2 BUN 4 L 4 L 5 L Creatinine 0.4 L 0.5 L 0.5 L Est GFR (CKD-EPI 2020) 112.53 106.64 106.64 Glucose 98 143 H 155 H Calcium 8.1 L 8.1 L 8.0 L Magnesium Phenobarbital 09/22/22 09/22/22 09/22/22 00:26 05:15 05:15 WBC 8.70 RBC 4.14 Hgb 12.2 Hct 34.2 L MCV 83 MCH 29.5 MCHC 35.7 RDW 11.3 L Plt Count 195 MPV 10.3 Immature Gran % See Differential Neutrophils % 71.0 Lymphocytes % 15.0 Atypical Lymphs % 2 Monocytes % 9.0 Eosinophils % 0.0 Basophils % 1.0 Nucleated RBC % 0.0 Absolute Neutrophils 6.18 Absolute Lymphocytes 1.48 Absolute Monocytes 0.78 Absolute Eosinophils 0.00 Absolute Basophils 0.09 RBC Morphology Normal Sodium 121 L* 122 L* Potassium 4.3 3.5 Chloride 91 L 91 L Carbon Dioxide 23.5 23.3 Anion Gap 6.5 7.7 BUN 7 5 L Creatinine 0.4 L 0.3 L Est GFR (CKD-EPI 2020) 112.53 120.61 Glucose 126 H 100 Calcium 8.0 L 8.0 L Magnesium 1.7 L Phenobarbital 7.2 L PAWSS Have you Ever Experienced Previous Episodes of Alcohol Withdrawal?: No Have you ever Experienced Withdrawal Seizures?: No Have you ever Experienced Delirium Tremens(DT)s?: No Result: 0 Multi-Disciplinary Checklist Lines/Tubes CENTRAL LINE: yes, Central Line Day#: 1 Note: R IJ CVL inserted 09/21/22 ARTERIAL LINE: no TRAN: no ENDOTRACHEAL TUBE: no ICU Maintenance GLUCOSE 140-180mg/dL: yes NUTRITION AT GOAL: no, Reason/Intervention: Nutrition consulted PRESSURE ULCER: no RESTRAINTS: no ANTIBIOTICS(if yes, consider Stewardship): Yes Social Issues FAMILY UPDATED: yes PT/OT: yes GOALS/DISPOSITION/COPPER FLOTATION OPERATOR: yes CODE STATUS: Full Prophylaxis DVT PROPHYLAXIS: yes GI PROPHYLAXIS: no Time Spent with Patient Time Spent with Patient: 35-49 minutes Time was spent: preparing to see the patient(eg.review tests), obtaining and/or reviewing separately otained hiistory, ordering medications,tests, procedures, referring, communicating with other health pediatric care coordinator, indepentently interpreting results, counseling the patient and care coordination
[2022-09-22] MEDS: predniSONE 20 MG TAB 40 MG PO (09:17)
[2022-09-22] MEDS: Enoxaparin 40 MG/0.4 ML SYR SC (09:18)
[2022-09-22] MEDS: Benzonatate 200 MG CAP PO ×3 (09:18→20:46)
[2022-09-22] MEDS: Cholecalciferol (Vitamin D3) 1,000 UNIT TAB 1000 UNITS PO (09:18)
[2022-09-22] MEDS: Thiamine 100 MG TAB PO (09:18)
[2022-09-22] MEDS: Magnesium Chloride 64 MG TABCR PO ×2 (09:19→20:46)
[2022-09-22] MEDS: guaiFENesin 600 MG TABCR PO ×2 (09:19→20:47)
[2022-09-22] MEDS: Folic Acid 1 MG TAB PO (09:19)
[2022-09-22] MEDS: Cyanocobalamin 500 MCG TAB 1000 MCG PO (09:19)
[2022-09-22] MEDS: Famotidine 20 MG TAB PO (09:19)
[2022-09-22] MEDS: Multivitamin TAB 2 TAB PO (09:19)
[2022-09-22] MEDS: POTASSIUM CHLORIDE 20 MEQ/100 ML BAG 50 MEQ IVPB ×2 (09:23→12:01)
[2022-09-22] MEDS: MAGNESIUM SULFATE 2 GM/50 ML BAG IVPB (09:23)
[2022-09-22] MEDS: DOXYCYCLINE 100 MG in Normal Saline 100 ML IVPB ×2 (09:33→21:27)
--- NOTE | 2022-09-22 09:42 | W.NUTCONSULT ---
Date of service: 09/22/22 Time of Service: 09:42 Nutritional Consult ASSESSMENT: 62 year old female admitted with severe hyponatremia with influenza with hx of ETOH/tobacco use, alcoholic hepatitis. BMI indicates underweight status. [place] Weight: 100 lbs. Appetite poor prior to admit, poor since admit. Once sodium level restored expect appetite to return. Estimated Needs: 4468-5886 kcal, 45-54 g protein, 1400 ml fluid Will need to complete > 50% of meals to meet 100% macronutrient needs Meds include thiamin, folic acid, magnesium for repletion NUTRITIONAL DIAGNOSIS: Underweight with inadequate macronutrient intake for > 5 days INTERVENTION: Continue regular meal plan with 1000 ml free water restriction. Ensure Clear TID MONITORING AND EVALUATION: will continue to monitor labs, po intake, weight Time Spent in Nutritional Counseling and Treatment: 0
[2022-09-22] MEDS: Potassium Chloride Liquid 20 MEQ PKT 40 MEQ PO ×2 (11:14→20:46)
--- NOTE | 2022-09-22 12:07 | PDOC.CMPRO ---
- If Service Date Differs Date of service: 09/22/22 Time of Service: 12:07 Care Management Progress Note S/O: Haydee was sitting up in her bed when CM attempted to meet with her, but she was on her personal phone, and was not able to engage with CM. Per report, her sodium remains low, and is being replaced. She is receiving antibiotics for a suspected superimposed bacterial bronchitis. CM will continue to follow. A: Haydee is a 62 year old female admitted to [facility] on 09/19/22 for severe hyponatremia, influenza. P: Anticipate Haydee will be discharged home with no new services when medically cleared by provider. She will follow up with the PCP appointment that will be scheduled for her and the plan of care as prescribed. She will transport via [facility] vs private vehicle with family. CM will follow and assess for discharge planning concerns.
[2022-09-22 13:08] LABS: Anion Gap 7.9 mmol/L (3-11); BUN 5 mg/dL (7-18); CO2 24.1 mmol/L (21.0-32.0); CREATININE 0.5 mg/dL (0.55-1.02); Calcium 8.3 mg/dL (8.5-10.1); Chloride 90 mmol/L (98-107); Estimated GFR 106.64 (mL/min/1.73m2); Glucose 126 mg/dL (74-106); Potassium 3.4 mmol/L (3.5-5.1)
[2022-09-22 13:11] LABS: Sodium 122 mmol/L (136-145)
[2022-09-22] MEDS: SODIUM CHLORIDE 3% 500 ML 14 ML IV (18:06)
[2022-09-22 18:43] LABS: BUN 7 mg/dL (7-18); CREATININE 0.5 mg/dL (0.55-1.02); Chloride 88 mmol/L (98-107); Estimated GFR 106.64 (mL/min/1.73m2); Glucose 140 mg/dL (74-106); Potassium 4.3 mmol/L (3.5-5.1)
[2022-09-22 18:44] LABS: Sodium 118 mmol/L (136-145)
[2022-09-23] VITALS (25 sets, daily range): BP systolic 124–176; BP diastolic 72–98; PULSE 65–95; RESP 13–34; TEMP 36.1–36.7; O2SAT 97–98
[2022-09-23 00:47] LABS: CREATININE 0.3 mg/dL (0.55-1.02); Chloride 87 mmol/L (98-107); Estimated GFR 120.61 (mL/min/1.73m2)
[2022-09-23 00:48] LABS: Anion Gap 5.8 mmol/L (3-11); BUN 5 mg/dL (7-18); CO2 24.2 mmol/L (21.0-32.0); Calcium 7.7 mg/dL (8.5-10.1); Glucose 97 mg/dL (74-106); Potassium 3.9 mmol/L (3.5-5.1)
[2022-09-23 00:50] LABS: Sodium 117 mmol/L (136-145)
[2022-09-23] MEDS: guaiFENesin/CODEINE PHOSPHATE 10 ML CUP PO ×4 (01:21→22:05)
[2022-09-23] MEDS: Normal Saline 100 ML 50 ML (01:24)
[2022-09-23 06:38] LABS: HCT 32.1 % (36.0-46.0); HGB 11.3 g/dL (11.2-15.7); MCHC 35.2 % (32.0-36.0); MCV 83 fL (80-95); MPV 10.2 fL (8.0-11.0); Platelet Count 233 10^3/uL (130-400); RBC 3.89 10^6/uL (3.93-5.22); RDW 11.2 % (11.7-14.6); RDW-SD 33.4 fL; WBC 7.62 10^3/uL (4.4-10.8)
[2022-09-23 06:59] LABS: Anion Gap 4.5 mmol/L (3-11); BUN 4 mg/dL (7-18); CO2 26.5 mmol/L (21.0-32.0); CREATININE 0.4 mg/dL (0.55-1.02); Calcium 7.6 mg/dL (8.5-10.1); Chloride 88 mmol/L (98-107); Estimated GFR 112.53 (mL/min/1.73m2); Glucose 79 mg/dL (74-106); Magnesium 1.4 mg/dL (1.8-2.4); Potassium 3.1 mmol/L (3.5-5.1)
[2022-09-23 07:01] LABS: Sodium 119 mmol/L (136-145)
[2022-09-23 07:05] LABS: ALT 72 U/L (14-59); AST 58 U/L (15-37); Albumin 2.5 g/dL (3.4-5.0); Alkaline Phosphatase 68 U/L (46-116); Bilirubin, Direct 0.2 mg/dL (0.0-0.2); Bilirubin, Total 0.4 mg/dL (0.2-1.0); Total Protein 5.3 g/dL (6.4-8.2)
[2022-09-23 07:30] LABS: Absolute Eosinophil Count 0.08 10^3/uL (0.0-0.7); Absolute Lymphocyte Count 2.06 10^3/uL (1.2-3.4); Absolute Monocyte Count 0.53 10^3/uL (0.1-0.8); Absolute Neutrophil Count 4.95 10^3/uL (1.2-6.7)
[2022-09-23 07:31] LABS: Diff Comment Manual Differential; RBC Morphology Normal
[2022-09-23] MEDS: MAGNESIUM SULFATE 4 GM/100 ML BAG IVPB (08:57)
[2022-09-23] MEDS: POTASSIUM CHLORIDE 20 MEQ/100 ML BAG 50 MEQ IVPB ×2 (08:58→10:30)
[2022-09-23] MEDS: Potassium Chloride Liquid 20 MEQ PKT 40 MEQ PO ×2 (08:58→20:18)
[2022-09-23] MEDS: Magnesium Chloride 64 MG TABCR 128 MG PO ×2 (08:58→20:18)
[2022-09-23] MEDS: Enoxaparin 40 MG/0.4 ML SYR SC (08:58)
[2022-09-23] MEDS: Cholecalciferol (Vitamin D3) 1,000 UNIT TAB 1000 UNITS PO (08:58)
[2022-09-23] MEDS: Cyanocobalamin 500 MCG TAB 1000 MCG PO (08:59)
[2022-09-23] MEDS: Multivitamin TAB 2 TAB PO (08:59)
[2022-09-23] MEDS: Benzonatate 200 MG CAP PO ×3 (08:59→20:18)
[2022-09-23] MEDS: predniSONE 20 MG TAB 40 MG PO (08:59)
[2022-09-23] MEDS: Thiamine 100 MG TAB PO (08:59)
[2022-09-23] MEDS: Folic Acid 1 MG TAB PO (09:00)
[2022-09-23] MEDS: guaiFENesin 600 MG TABCR PO ×2 (09:00→20:18)
[2022-09-23] MEDS: Famotidine 20 MG TAB PO (09:00)
--- NOTE | 2022-09-23 09:01 | W.PULMCC ---
General Date of Service Date of service: 09/23/22 Time of Service: 08:00 Reason for Admission to ICU: Hyponatremia Assessment and Plan Assessment and plan (1) Hyponatremia: Status: Acute (2) Alcohol use disorder: Status: Acute (3) Alcoholic hepatitis: Status: Acute (4) Influenza A: Status: Acute (5) Smoker: Status: Acute (6) Malnutrition: Status: Acute (7) Hypomagnesemia: Status: Acute (8) Bronchitis: Status: Acute Assessment and plan: This is a 62 yo transferred from [facility] for hyponatremia of 109 (baseline 130). She is being treated with a DDAVP clamp and hypertonic saline and currently has a sodium of 119, which is lower than yesterday when I left. The HTS is running at 20cc/hr and I did stop the DDAVP. Given that this is likely beer potomania, fluid restriction should really be the only thing required. Her withdrawal symptoms have been well controlled on the phenobarb protocol. She has influenza and do agree it is reasonable for a bacterial bronchitis as well. Recommendations Pulmonary: Smoker - recommend cessation Cardiac: No acute concerns Renal: Hyponatremia - stop DDAVP given backslide - HTSat 20cc/hr - electrolytes q6hr until sodium around 128 - once Na reached 128, would stop HTS and do repeat lytes to ensure stability - fluid restriction 1L/day Hypomagnesemia - replete to 2 Hypokalemia - replete to 4 I&O: Intake & Output 09/20/22 09/21/22 09/22/22 09/23/22 23:59 23:59 23:59 23:59 Intake Total 1527.167 / 1452.455 6514.7286 / 2568.7286 1958.4484 / 2528.4484 1078.333 / 1078.333 Output Total 1050 / 1050 2225 / 2475 1300 / 1450 800 / 800 Balance 477.167 / 477.167 -56.2714 / 93.7286 658.4484 / 1078.4484 278.333 / 278.333 Weight 41.9 kg 43.9 kg Daily Fluid Goal:: even GI Nutrition: Malnutrition - nutrition consultation Date of Last Bowel Movement: 09/22/22 Infectious Disease: Influenza A - out of window for Tamiflu and not critically ill from this standpoint - total 5 day course of prednisone should be sufficient - supportive care Bronchitis - agree with doxycycline - nebs prn Hematologic: No acute concerns Neurologic: EtOH Withdrawal - on phenobarb protocol, no addiitonal doses needed Endocrine: No acute concern Lines: R IJ CVC PIV Prophylaxis: Lovenox Famotidine Code Status: Resuscitation Status Full Code Subjective Critical and life-threatening events over the past 24 hours: Haydee is not happy this morning. She does not want to participate in conversation. Her sodium took a backslide overnight. This morning I cancelled the DDAVP. Exam Narrative Exam Narrative: Gen: NAD, normal respiratory effort, thin HENT: PERRL Chest: No respiratory distress, normal appearance of chest, clear to auscultation bilaterally Heart: regular rate and rhythym, no murmurs, rubs or gallops Abdomen: Non-distended, soft, non tender Extremities: No clubbing, edema, cyanosis, rashes Neuro: AAOx3 , non focal Psych: cooperative, appropriate mental affect Most Recent VS/Results Last Vital Signs Temp 36.6 C 09/23/22 05:42 Pulse 69 09/23/22 05:01 Resp 17 09/23/22 05:42 BP 141/80 H 09/23/22 05:01 Pulse Ox 98 09/23/22 05:42 Laboratory Results - last 24 hr 09/22/22 09/22/22 09/23/22 12:24 18:26 00:30 WBC RBC Hgb Hct MCV MCH MCHC RDW Plt Count MPV Immature Gran % Neutrophils % Lymphocytes % Monocytes % Eosinophils % Basophils % Nucleated RBC % Absolute Neutrophils Absolute Lymphocytes Absolute Monocytes Absolute Eosinophils Absolute Basophils RBC Morphology Sodium 122 L* 118 L* 117 L* Potassium 3.4 L 4.3 3.9 Chloride 90 L 88 L 87 L Carbon Dioxide 24.1 23.0 24.2 Anion Gap 7.9 7.0 5.8 BUN 5 L 7 5 L Creatinine 0.5 L 0.5 L 0.3 L Est GFR (CKD-EPI 2020) 106.64 106.64 120.61 Glucose 126 H 140 H 97 Calcium 8.3 L 8.0 L 7.7 L Magnesium Total Bilirubin Conjugated Bilirubin AST ALT Alkaline Phosphatase Total Protein Albumin 09/23/22 09/23/22 09/23/22 05:30 05:30 05:30 WBC 7.62 RBC 3.89 L Hgb 11.3 Hct 32.1 L MCV 83 MCH 29.0 MCHC 35.2 RDW 11.2 L Plt Count 233 MPV 10.2 Immature Gran % See Differential Neutrophils % 65.0 Lymphocytes % 27.0 Monocytes % 7.0 Eosinophils % 1.0 Basophils % 0.0 Nucleated RBC % 0.0 Absolute Neutrophils 4.95 Absolute Lymphocytes 2.06 Absolute Monocytes 0.53 Absolute Eosinophils 0.08 Absolute Basophils 0.00 RBC Morphology Normal Sodium 119 L* Potassium 3.1 L Chloride 88 L Carbon Dioxide 26.5 Anion Gap 4.5 BUN 4 L Creatinine 0.4 L Est GFR (CKD-EPI 2020) 112.53 Glucose 79 Calcium 7.6 L Magnesium 1.4 L Total Bilirubin 0.4 Conjugated Bilirubin 0.2 AST 58 H ALT 72 H Alkaline Phosphatase 68 Total Protein 5.3 L Albumin 2.5 L Review of Systems All systems reviewed & are unremarkable except as noted in HPI and below Time spent with patient Time spent in Critical Care: 35 Time spent in Critical care included: Chart review, Documenting critically ill care, Time at immediate bedside and Discussing critically ill care with other medical staff
--- NOTE | 2022-09-23 09:46 | PT.INIE ---
Date of service: 09/23/22 Time of Service: 09:28 PT Notes Visit Reasons: Severe Hyponatremia, Influenza Physical Therapy Inpatient Initial Evaluation Date: 09/23/2022 Referring Doctor: Heather Gaines MD PT Orders: PT CONSULT: Limited ability Precautions: Fall. Standard. Activity as tolerated. Patient Profile/Admitting Diagnosis: Haydee is a 62-year-old female who presented to the ED for symptoms of cough, fever, and emesis and admitted for management of hyponatremia, influenza A, EtOH use disorder, smoking, and alcoholic hepatitis. PMHX: All Active Problems?(Updated 09/19/22 @ 23:31 by Kevin Foster) Discharge planning issues (Acute) DVT prophylaxis (Acute) Alcoholic hepatitis (Acute) Smoker (Acute) Hyponatremia (Acute) Alcohol use disorder (Acute) Influenza A (Acute) Surgical History? S/P section Social History/Home Situation: Lives with mother in a private home. 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 Independent with all aspects of ADLs prior to admission. Equipment Owned/DME: None Subjective: Does not understand why she needed to be seen by PT as she states that without her lines, she should be able to manage moving about on her own without any problems. Did agree to a getting out of bed to be changed as she feels that her hospital gown is too big for her. Objective: General Observation: Seated at edge of bed. R central venous catheter in place. Telemetry monitoring in place. Mental Status: Alert and oriented as to person, place, time, and purpose. Able to pay attention, focus, and respond appropriately. Pain: Denies Vital Signs: Closely monitored via tele ROM: Right Upper Extremity: Shoulder Flexion WFL. Shoulder abduction WFL. Elbow flexion WFL. Wrist flexion WFL. Functional opening and closing of hand WFL. Left Upper Extremity: Shoulder Flexion WFL. Shoulder abduction WFL. Elbow flexion WFL. Wrist flexion WFL. Functional opening and closing of hand WFL. Right Lower Extremity: Hip flexion WFL. Hip abduction WFL. Knee flexion WFL. Ankle dorsiflexion WFL. Ankle plantarflexion WFL. Left Lower Extremity: Hip flexion WFL. Hip abduction WFL. Knee flexion WFL. Ankle dorsiflexion WFL. Ankle plantarflexion WFL. Strength: Right Upper Extremity: Shoulder flexors 4/5. Shoulder abductors 4/5. Elbow flexors 5/5. Elbow extensors 5/5. Review Manager strong. Left Upper Extremity: Shoulder flexors 4/5. Shoulder abductors 4/5. Elbow flexors 5/5. Elbow extensors 5/5. Review Manager strong. Right Lower Extremity: Hip flexors 4/5. Hip abductors 4/5. Knee flexors 5/5. Knee extensors 5/5. Ankle dorsiflexors 5/5. Ankle plantarflexors 5/5. Left Lower Extremity: Hip flexors 4/5. Hip abductors 4/5. Knee flexors 5/5. Knee extensors 5/5. Ankle dorsiflexors 5/5. Ankle plantarflexors 5/5. Bed Mobility/Transfers: Supine to sit independent Sit to supine independent Sit to stand supervision Stand to sit supervision Bed to bedside commode supervision Bedside commode to bed supervision Gait: Instructed patient with level surface ambulation of 5 steps requiring stand by assist without AD. refused to walk further as she needed to finish taking her pills. Balance: Static Sitting: Normal Dynamic Sitting: Normal Static Standing: Normal Dynamic Standing: Good Special Tests: Mobility Limitations Standardized Measure [facility] AM-PAC 6 clicks Basic Mobility Inpatient Short Form: Raw Score: 23 CMS Score: 11% deficit Informed Consent/Education: Patient was instructed in purpose of PT consult and plan of care. Agreeable to proceed with established PT POC to achieve personal goals. Assessment: Will plan to do 1-2 more session to ensure that patient is safe to be independent in her room or in the hallway without AD before discharge from PT. Patient presents with clinical signs and symptoms consistent with current/admitting diagnoses that have resulted to mobility limitations as demonstrated by the following impairment level findings: 1. Impaired activity tolerance Impairments are contributing to the following functional limitations: 1. Increased completion time for mobility ADL performance 2. Increased risk for falls 3. Difficulty with managing steps alone safely Patient is assessed as a 38914 low complexity based on the following: History: 62-year-old female with past medical history as indicated above Examination: Demonstrable impairment in strength, balance, and mobility level with underlying impairments and functional limitations as exhibited above as well as deficit score of 11% utilizing the [facility] Mobility Inpatient Short Form Presentation: Evolving Decision Makin moderate complexity Goals: Goals X1 week 1. Independent gait on level surface with use of no AD for at least 300 feet without report of pain nor dyspnea 2. Independent stair negotiation while holding onto B rails for at least 5 steps without report of pain nor dyspnea Plan of Care/Treatment Plan: 1x/day, 7 days/week x 1 week. Plan of care has been reviewed with the BRAIDER TENDER providing the service under Physical Therapy direction. Initiate Physical Therapy intervention for pain management as needed, strengthening, bed mobility, transfers, gait, stairs, balance training, and use of assistive device. DISCHARGE RECOMMENDATIONS: [] Home with no services [] [] Home with services [specify] [] Home with outpatient PT [] [] SNF for continued rehabilitation [] [] [facility] [] [] SNF versus LTC based on ability to participate and progress [] [X] PT vs. no services dependning on progress towards goals TREATMENT CODE/TIME: 9716 1 x 17 minutes beginning at 9:28 AM. Thank you for the opportunity to participate in the care of this patient. Rosemarie Roy PT, DPT, CLT [facility] [place], [place]
[2022-09-23] MEDS: DOXYCYCLINE 100 MG in Normal Saline 100 ML IVPB ×2 (10:29→22:06)
--- NOTE | 2022-09-23 10:44 | W.NUTRFU ---
Date of service: 09/23/22 Time of Service: 10:44 Nutrition Note NOTE: Met with Haydee today. She reports drinking the ensure clears with meals however but has had limited meal intake for last 24 hours. WIll start providing small portions and continue with ensure clears. Time Spent in Nutritional Counseling and Treatment: 10
[2022-09-23] MEDS: Normal Saline Flush 10 ML SYR IVP ×2 (12:26→23:20)
--- NOTE | 2022-09-23 12:29 | CMPROGNOTE_ITS ---
- If Service Date Differs Date of service: 09/23/22 Time of Service: 12:29 Care Management Progress Note S/O: Haydee was resting when CM attempted to meet with her. CM talked to her daughter, Yocasta (on HIPAA), who requested that CM discuss treatment options for recovery/alcohol cessation. CM explained that although these services/supports have already been offered and declined, CM would review the options with Haydee again. Yocasta stated that the family has been discussing it with her, but she is not agreeable to help when talking to them. She feels that Haydee may be more amenable to the support from CM. CM provided education surrounding our patient's right to decline services/treatment. CM will continue to follow. A: Haydee is a 62 year old female admitted to [facility] on 09/19/22 for severe hyponatremia, influenza. P: Anticipate Haydee will be discharged home with no new services when medically cleared by provider. She will follow up with the PCP appointment that will be scheduled for her and the plan of care as prescribed. She will transport via [facility] vs private vehicle with family. CM will follow and assess for discharge planning concerns.
[2022-09-23 12:32] LABS: Anion Gap 4.4 mmol/L (3-11); BUN 6 mg/dL (7-18); CO2 24.6 mmol/L (21.0-32.0); CREATININE 0.4 mg/dL (0.55-1.02); Chloride 89 mmol/L (98-107); Estimated GFR 112.53 (mL/min/1.73m2); Glucose 125 mg/dL (74-106); Potassium 4.5 mmol/L (3.5-5.1)
[2022-09-23 12:34] LABS: Sodium 118 mmol/L (136-145)
[2022-09-23 16:21] LABS: Anion Gap 6.5 mmol/L (3-11); BUN 6 mg/dL (7-18); CO2 23.5 mmol/L (21.0-32.0); CREATININE 0.4 mg/dL (0.55-1.02); Calcium 7.8 mg/dL (8.5-10.1); Chloride 90 mmol/L (98-107); Estimated GFR 112.53 (mL/min/1.73m2); Glucose 115 mg/dL (74-106); Potassium 4.7 mmol/L (3.5-5.1)
[2022-09-23 16:26] LABS: Sodium 120 mmol/L (136-145)
--- NOTE | 2022-09-23 19:55 | W.PM.PROGNOT ---
Date of Service Date of service: 09/23/22 Time of Service: 17:55 Assessment and Plan Assessment and plan (1) Hyponatremia: Status: Acute Assessment and plan: Suspect beer potomania. Urine sodium was 15 at [facility] - not [facility]. DDAVP d/c'ed. Sodium is coming up on Hypertonic saline. Continue Hypertonic saline with serial chemistries (to be checked peripherally). Baseline sodium is anywhere between 128-135, per review of prior records from [facility]. (2) Influenza A: Status: Acute Assessment and plan: With suspected superimposed bacterial bronchitis. Continue nebs, prednisone, mucinex, tessalon, cepacol. Encourage pulmonary toilet. Continue doxycycline. (3) Bronchitis: Status: Acute Assessment and plan: As above (4) Alcoholic hepatitis: Status: Acute Assessment and plan: Maddrey score of 0.8 indicates a good prognosis.. (5) Alcohol use disorder: Status: Acute Assessment and plan: Monitor on CIWA. Per daughter, patient does have a h/o withdrawal, which was prolonged. s/p phenobarbital load, doing well. BMI of 18 kg/m2. Nutrition consulted. (6) Smoker: Status: Acute Assessment and plan: Continue nicotrol inhaler. (7) Hypomagnesemia: Status: Acute Assessment and plan: Replete; recheck in am (8) Malnutrition: Status: Acute Assessment and plan: Nutrition consulted. Continue ensure clears, vitamin supplementation. (9) DVT prophylaxis: Status: Acute Assessment and plan: LMWH (10) Discharge planning issues: Status: Acute Assessment and plan: Full code Keep in ICU. Total Critical Care Time [address] Box Subjective Subjective Interval history since last seen: Ms Pierson denies dizziness, chest pain, shortness of breath, nausea, headache. Exam Narrative Exam Narrative: General: Pleasant middle-aged female, not anxious, A&Ox3, coughing, on RA HEENT: EOMI, MMM Heart: RRR, no m/r/g Lungs: CTAB Abdomen: soft, nontender, nondistended Extremities: no edema BLEs, dry skin Objective Last Vital Signs Temp 36.6 C 09/23/22 16:00 Pulse 81 09/23/22 18:00 Resp 17 09/23/22 18:00 BP 124/96 H 09/23/22 18:00 Pulse Ox 98 09/23/22 05:42 Laboratory Results - last 24 hr 09/23/22 09/23/22 09/23/22 00:30 05:30 05:30 WBC 7.62 RBC 3.89 L Hgb 11.3 Hct 32.1 L MCV 83 MCH 29.0 MCHC 35.2 RDW 11.2 L Plt Count 233 MPV 10.2 Immature Gran % See Differential Neutrophils % 65.0 Lymphocytes % 27.0 Monocytes % 7.0 Eosinophils % 1.0 Basophils % 0.0 Nucleated RBC % 0.0 Absolute Neutrophils 4.95 Absolute Lymphocytes 2.06 Absolute Monocytes 0.53 Absolute Eosinophils 0.08 Absolute Basophils 0.00 RBC Morphology Normal Sodium 117 L* 119 L* Potassium 3.9 3.1 L Chloride 87 L 88 L Carbon Dioxide 24.2 26.5 Anion Gap 5.8 4.5 BUN 5 L 4 L Creatinine 0.3 L 0.4 L Est GFR (CKD-EPI 2020) 120.61 112.53 Glucose 97 79 Calcium 7.7 L 7.6 L Magnesium 1.4 L Total Bilirubin Conjugated Bilirubin AST ALT Alkaline Phosphatase Total Protein Albumin 09/23/22 09/23/22 09/23/22 05:30 12:15 15:56 WBC RBC Hgb Hct MCV MCH MCHC RDW Plt Count MPV Immature Gran % Neutrophils % Lymphocytes % Monocytes % Eosinophils % Basophils % Nucleated RBC % Absolute Neutrophils Absolute Lymphocytes Absolute Monocytes Absolute Eosinophils Absolute Basophils RBC Morphology Sodium 118 L* 120 L* Potassium 4.5 D 4.7 Chloride 89 L 90 L Carbon Dioxide 24.6 23.5 Anion Gap 4.4 6.5 BUN 6 L 6 L Creatinine 0.4 L 0.4 L Est GFR (CKD-EPI 2020) 112.53 112.53 Glucose 125 H 115 H Calcium 8.0 L 7.8 L Magnesium Total Bilirubin 0.4 Conjugated Bilirubin 0.2 AST 58 H ALT 72 H Alkaline Phosphatase 68 Total Protein 5.3 L Albumin 2.5 L 09/23/22 18:00 WBC RBC Hgb Hct MCV MCH MCHC RDW Plt Count MPV Immature Gran % Neutrophils % Lymphocytes % Monocytes % Eosinophils % Basophils % Nucleated RBC % Absolute Neutrophils Absolute Lymphocytes Absolute Monocytes Absolute Eosinophils Absolute Basophils RBC Morphology Sodium Cancelled Potassium Cancelled Chloride Cancelled Carbon Dioxide Cancelled Anion Gap Cancelled BUN Cancelled Creatinine Cancelled Est GFR (CKD-EPI 2020) Cancelled Glucose Cancelled Calcium Cancelled Magnesium Total Bilirubin Conjugated Bilirubin AST ALT Alkaline Phosphatase Total Protein Albumin PAWSS Have you Ever Experienced Previous Episodes of Alcohol Withdrawal?: No Have you ever Experienced Withdrawal Seizures?: No Have you ever Experienced Delirium Tremens(DT)s?: No Result: 0 Time Spent with Patient Time Spent with Patient: 35-49 minutes Time was spent: preparing to see the patient(eg.review tests), obtaining and/or reviewing separately otained hiistory, ordering medications,tests, procedures, referring, communicating with other health career and guidance counselor, indepentently interpreting results, counseling the patient and care coordination
[2022-09-23] MEDS: SODIUM CHLORIDE 3% 500 ML 20 ML IV (20:17)
[2022-09-23 22:32] LABS: Anion Gap 5.2 mmol/L (3-11); BUN 7 mg/dL (7-18); CO2 25.8 mmol/L (21.0-32.0); CREATININE 0.5 mg/dL (0.55-1.02); Calcium 8.4 mg/dL (8.5-10.1); Chloride 94 mmol/L (98-107); Estimated GFR 106.64 (mL/min/1.73m2); Glucose 102 mg/dL (74-106); Potassium 5.5 mmol/L (3.5-5.1); Sodium 125 mmol/L (136-145)
[2022-09-24] VITALS (9 sets, daily range): BP systolic 144–155; BP diastolic 80–86; PULSE 68–86; RESP 17–23; TEMP 36.2–36.9; O2SAT 94–97
[2022-09-24] MEDS: guaiFENesin/CODEINE PHOSPHATE 10 ML CUP PO (03:53)
[2022-09-24 04:42] LABS: Anion Gap 3.7 mmol/L (3-11); BUN 5 mg/dL (7-18); CO2 28.3 mmol/L (21.0-32.0); CREATININE 0.4 mg/dL (0.55-1.02); Calcium 8.2 mg/dL (8.5-10.1); Chloride 97 mmol/L (98-107); Estimated GFR 112.53 (mL/min/1.73m2); Glucose 85 mg/dL (74-106); Magnesium 1.9 mg/dL (1.8-2.4); Potassium 3.9 mmol/L (3.5-5.1); Sodium 129 mmol/L (136-145)
[2022-09-24 04:44] LABS: Abs Immature Grans 0.07 10^3/uL (0.0-0.06); Absolute Basophil Count 0.01 10^3/uL (0.0-0.2); Absolute Eosinophil Count 0.01 10^3/uL (0.0-0.7); Absolute Lymphocyte Count 2.61 10^3/uL (1.2-3.4); Absolute Monocyte Count 1.47 10^3/uL (0.1-0.8); Absolute Neutrophil Count 4.26 10^3/uL (1.2-6.7); Basophils % 0.1; Eosinophils % 0.1; HCT 34.2 % (36.0-46.0); HGB 12.1 g/dL (11.2-15.7); Immature Grans % 0.8; MCH 29.4 pg (27.0-33.0); MCHC 35.4 % (32.0-36.0); MCV 83 fL (80-95); MPV 9.6 fL (8.0-11.0); Monocytes % 17.4; Neutrophils % 50.6; Platelet Count 322 10^3/uL (130-400); RBC 4.12 10^6/uL (3.93-5.22); RDW 11.5 % (11.7-14.6); RDW-SD 34.6 fL; WBC 8.43 10^3/uL (4.4-10.8)
[2022-09-24] MEDS: Normal Saline Flush 10 ML SYR IVP ×2 (05:19→15:41)
--- NOTE | 2022-09-24 06:15 | NUR.NOTE ---
Nursing Note: Right Forearm and Right AC Peripheral IV's discontinued due to patient complaint of pain with flushing. Both catheters were intact, minimal bleeding at both iv sites, DSD applied.
--- NOTE | 2022-09-24 07:05 | W.PULMCC ---
General Date of Service Date of service: 09/24/22 Time of Service: 07:05 Reason for Admission to ICU: Hyponatremia Assessment and Plan Assessment and plan (1) Hyponatremia: Status: Acute (2) Alcohol use disorder: Status: Acute (3) Alcoholic hepatitis: Status: Acute (4) Influenza A: Status: Acute (5) Smoker: Status: Acute (6) Malnutrition: Status: Acute (7) Hypomagnesemia: Status: Acute (8) Bronchitis: Status: Acute Assessment and plan: This is a 62 yo transferred from [facility] for hyponatremia of 109 (baseline 130). She was being treated with a DDAVP clamp and hypertonic saline but had a back slide of sodium yesterday, so I discontinued the DDAVP and continued the HTS and her sodium improved to 129 today. Ultimately, this seems most likely to be beer potomania and like never needed HTS treatment (just fluid restriction). Her labs are improved now. If on the next BMP check the sodium is relatively stable, I would recommend taking out the central line. She would no long need ICU monitoring at that time as well. Recommendations Pulmonary: Smoker - recommend cessation Cardiac: No acute concerns Renal: Hyponatremia - HTS stopped - if repeat BMP shows relatively stable sodium and discontinue central line - fluid restriction 1L/day Hypomagnesemia - replete to 2 Hypokalemia - replete to 4 I&O: Intake & Output 09/21/22 09/22/22 09/23/22 09/24/22 23:59 23:59 23:59 23:59 Intake Total 2168.7286 / 2568.7286 1958.4484 / 2528.4484 3040.500 / 3040.500 88.25 / 88.25 Output Total 2225 / 2475 1300 / 1450 3800 / 3800 400 / 400 Balance -56.2714 / 93.7286 658.4484 / 1078.4484 -759.500 / -759.500 -311.75 / -311.75 Weight 43.9 kg 39.7 kg Daily Fluid Goal:: even GI Nutrition: Malnutrition - nutrition consultation Date of Last Bowel Movement: 09/24/22 Infectious Disease: Influenza A - out of window for Tamiflu and not critically ill from this standpoint - total 5 day course of prednisone should be sufficient - supportive care Bronchitis - agree with doxycycline - nebs prn Hematologic: No acute concerns Neurologic: EtOH Withdrawal - on phenobarb protocol, no addiitonal doses needed Endocrine: No acute concern Lines: R IJ CVC PIV Prophylaxis: Lovenox Famotidine Code Status: Resuscitation Status Full Code Subjective Critical and life-threatening events over the past 24 hours: Sodium this morning is 129. HTS was turned off at 5:30am. She is feeling fine and is anxious to go home. Exam Narrative Exam Narrative: Gen: NAD, normal respiratory effort, thin HENT: PERRL Chest: No respiratory distress, normal appearance of chest, clear to auscultation bilaterally Heart: regular rate and rhythym, no murmurs, rubs or gallops Abdomen: Non-distended, soft, non tender Extremities: No clubbing, edema, cyanosis, rashes Neuro: AAOx3 , non focal Psych: cooperative, appropriate mental affect Most Recent VS/Results Last Vital Signs Temp 36.2 C L 09/24/22 04:00 Pulse 70 09/24/22 04:00 Resp 22 09/24/22 04:00 BP 144/84 H 09/24/22 03:47 Pulse Ox 94 09/24/22 04:00 Laboratory Results - last 24 hr 09/23/22 09/23/22 09/23/22 05:30 05:30 12:15 WBC 7.62 RBC 3.89 L Hgb 11.3 Hct 32.1 L MCV 83 MCH 29.0 MCHC 35.2 RDW 11.2 L Plt Count 233 MPV 10.2 Immature Gran % See Differential Neutrophils % 65.0 Lymphocytes % 27.0 Monocytes % 7.0 Eosinophils % 1.0 Basophils % 0.0 Nucleated RBC % 0.0 Absolute Neutrophils 4.95 Absolute Lymphocytes 2.06 Absolute Monocytes 0.53 Absolute Eosinophils 0.08 Absolute Basophils 0.00 RBC Morphology Normal Sodium 118 L* Potassium 4.5 D Chloride 89 L Carbon Dioxide 24.6 Anion Gap 4.4 BUN 6 L Creatinine 0.4 L Est GFR (CKD-EPI 2020) 112.53 Glucose 125 H Calcium 8.0 L Magnesium Total Bilirubin 0.4 Conjugated Bilirubin 0.2 AST 58 H ALT 72 H Alkaline Phosphatase 68 Total Protein 5.3 L Albumin 2.5 L 09/23/22 09/23/22 09/23/22 15:56 18:00 22:05 WBC RBC Hgb Hct MCV MCH MCHC RDW Plt Count MPV Immature Gran % Neutrophils % Lymphocytes % Monocytes % Eosinophils % Basophils % Nucleated RBC % Absolute Neutrophils Absolute Lymphocytes Absolute Monocytes Absolute Eosinophils Absolute Basophils RBC Morphology Sodium 120 L* Cancelled 125 L Potassium 4.7 Cancelled 5.5 H Chloride 90 L Cancelled 94 L Carbon Dioxide 23.5 Cancelled 25.8 Anion Gap 6.5 Cancelled 5.2 BUN 6 L Cancelled 7 Creatinine 0.4 L Cancelled 0.5 L Est GFR (CKD-EPI 2020) 112.53 Cancelled 106.64 Glucose 115 H Cancelled 102 Calcium 7.8 L Cancelled 8.4 L Magnesium Total Bilirubin Conjugated Bilirubin AST ALT Alkaline Phosphatase Total Protein Albumin 09/24/22 09/24/22 09/24/22 00:00 04:10 04:10 WBC 8.43 RBC 4.12 Hgb 12.1 Hct 34.2 L MCV 83 MCH 29.4 MCHC 35.4 RDW 11.5 L Plt Count 322 MPV 9.6 Immature Gran % 0.8 Neutrophils % 50.6 Lymphocytes % 31.0 Monocytes % 17.4 Eosinophils % 0.1 Basophils % 0.1 Nucleated RBC % 0.0 Absolute Neutrophils 4.26 Absolute Lymphocytes 2.61 Absolute Monocytes 1.47 H Absolute Eosinophils 0.01 Absolute Basophils 0.01 RBC Morphology Sodium Cancelled 129 L Potassium Cancelled 3.9 D Chloride Cancelled 97 L Carbon Dioxide Cancelled 28.3 Anion Gap Cancelled 3.7 BUN Cancelled 5 L Creatinine Cancelled 0.4 L Est GFR (CKD-EPI 2020) Cancelled 112.53 Glucose Cancelled 85 Calcium Cancelled 8.2 L Magnesium 1.9 Total Bilirubin Conjugated Bilirubin AST ALT Alkaline Phosphatase Total Protein Albumin Review of Systems All systems reviewed & are unremarkable except as noted in HPI and below Time spent with patient Time spent in Critical Care: 35 Time spent in Critical care included: Chart review, Documenting critically ill care, Time at immediate bedside and Discussing critically ill care with other medical staff
[2022-09-24] MEDS: DOXYCYCLINE 100 MG in Normal Saline 100 ML IVPB (09:09)
[2022-09-24] MEDS: Potassium Chloride Liquid 20 MEQ PKT 40 MEQ PO (09:09)
[2022-09-24] MEDS: Multivitamin TAB 2 TAB PO (09:09)
[2022-09-24] MEDS: Cyanocobalamin 500 MCG TAB 1000 MCG PO (09:09)
[2022-09-24] MEDS: Benzonatate 200 MG CAP PO ×2 (09:10→15:37)
[2022-09-24] MEDS: Folic Acid 1 MG TAB PO (09:10)
[2022-09-24] MEDS: predniSONE 20 MG TAB 40 MG PO (09:10)
[2022-09-24] MEDS: guaiFENesin 600 MG TABCR PO (09:10)
[2022-09-24] MEDS: Enoxaparin 40 MG/0.4 ML SYR SC (09:10)
[2022-09-24] MEDS: Cholecalciferol (Vitamin D3) 1,000 UNIT TAB 1000 UNITS PO (09:10)
[2022-09-24] MEDS: Magnesium Chloride 64 MG TABCR 128 MG PO (09:10)
[2022-09-24] MEDS: Thiamine 100 MG TAB PO (09:10)
[2022-09-24] MEDS: Famotidine 20 MG TAB PO (09:11)
[2022-09-24 11:54] LABS: Anion Gap 7.6 mmol/L (3-11); BUN 5 mg/dL (7-18); CO2 25.4 mmol/L (21.0-32.0); CREATININE 0.6 mg/dL (0.55-1.02); Calcium 8.5 mg/dL (8.5-10.1); Chloride 97 mmol/L (98-107); Estimated GFR 102.06 (mL/min/1.73m2); Glucose 106 mg/dL (74-106); Potassium 4.1 mmol/L (3.5-5.1); Sodium 130 mmol/L (136-145)
--- NOTE | 2022-09-24 13:45 | DSE_ITS ---
Date of service: 09/24/22 Time of Service: 13:45 DS: Diagnosis Discharge Diagnosis (1) Hyponatremia: Status: Resolved Asessment and Plan: likely secondary to beer potomania; although SIADH can not be entirely excluded. hyponatremia was treated w/ combination of 3% saline infusion along w/ DDAVP clamp (see the [employer] Book of Critical Care for details on use of DDAVP clamp to avoid over correction of hyponatremia. When her serum sodium did not rise appropriately but actually fell, the DDAVP clamp was stopped and just 3% saline was used. Serum sodium then benjamin over the next 3 days and patient was discharged w/ sodium of 130 and instructions to restrict her free water to 1200 mL per day or less. (2) Alcoholic hepatitis: Status: Resolved Asessment and Plan: patient had a low Maddrey score, nevertheless she did receive prednisone but for her acute bronchospasm than her alcoholic hepatitis. She was given phenobarbital protocol for acute alcohol withdrawal. She did well and did not develope delirium tremens (3) Alcohol use disorder: Status: Acute (4) Bronchitis: Status: Acute Asessment and Plan: patient was initially treated w/ Rocephin and doxycycline but sent home on 3 more days of doxycycline and prednisone and MDI (5) Influenza A: Status: Acute Asessment and Plan: patient presented late in her diagnosis of influenza A and therefore was not given Tamiflu (6) Smoker: Status: Acute Asessment and Plan: patient was given counseling on quitting smoking and sent home on a nicotine replacement (7) Hypomagnesemia: Status: Resolved Asessment and Plan: treated w/ oral and parenteral supplementation and sent home w/ an Rx for magnesium. Discharge Plan Disposition Patient Disposition: Home Condition: Good Discharge Details Reason For Visit: Severe Hyponatremia, Influenza Admit Date/Time: 09/19/22 20:33 Admit Provider: Kevin Foster Attending Provider: Kevin Foster Primary Care Provider: Unknown,Unknown Hospital Course Hospital Course: HISTORY & PHYSICAL EXAMINATION PATIENT NAME:? Haydee Pierson UNIT #:? ? [id number] ADMITTING PROVIDER:? Kevin Foster ACCOUNT #: ? [id number] ? PRIMARY CARE PROVIDER: ? DATE OF ADMIT:? ? 09/19/22 : ? 1960 ? Addenda Under hyponatremia below, the last sentence should read that the goal is to get the sodium to 115 (not 125) and keep it there until the afternoon, which 6mEq above her level at presentation.? The high end of the range would be 117mEq. Addendum dictated by Kevin Foster? 09/20/22603 <Electronically signed by Kevin Foster > 09/20/22603 Transcribed By: Kevin Foster? 09/20/22603 Cosigned by? Date of service: 09/19/22 Time of Service: 22:09 Assessment and Plan Assessment and plan (1) Hyponatremia: ?Status:?Acute ? ? ? Assessment and plan: Ms Pierson was transferred from [facility] due to her severe hyponatremia for ICU level of care.? I discussed the case with Dr. Rosales and reviewed his notes.? Given the patient's lack of regular medical care, we don't know the chronicity of her hyponatremia, but the acute illness and some vomiting and decreased oral intake suggest hypovolemic hyponatremia that is at least partially acute.? Her very low urine sodium is consistent with this.? Her naseua and loose stools cough be related to hyponatremia though they could also simply be the influenza, so it is unclear if she is sympotomatic at all. Unfortunately, during the time of transfer the sodium is went up faster than the goal of 6mEq in the first 24 hours despite a low infusion rate of 3% saline.? This is likely due to some diuresis.? Clearly she is at risk for rapid reversal, which is more typical in patients with alcohol use and liver disease.? Given this, am am adding desmopressin to help control the diuresis as we slowly replace the sodium.? I am also stopping the 3% sodium for now.? My goal at this point is to get the sodicum to 125 and then leave it there until tomorrow afternoon.? (2) Influenza A: ?Status:?Acute ? ? ? Assessment and plan: Influenza A positive, but she has been sick for over a week already.? SHe is here for the low sodium, and it not having severe symptom from the flu.? Given this, I will not treat with tamilfu.? However she does have an exam and CXR consistent with possible COPD, and her cough and chest tightness is her main complaint.? GIven this, I will trial albuterol/ipratropium nebs and treat with oral prednisone. (3) Alcohol use disorder: ?Status:?Acute ? ? ? Assessment and plan: Her alcohol use is constistent with AUD.? She is ambivalent aboutg stopping.? We discussed options to help.? SHe is at risk for alcohol withdrawal but has not shown signs of this yes.? MOnitor on CIWA. (4) Smoker: ?Status:?Acute ? ? ? Assessment and plan: precontemplative.? She requests nicotene inhaler for now. (5) Alcoholic hepatitis: ?Status:?Acute ? ? ? Assessment and plan: She has signs of mild alcholic hepatitis.? Follow. (6) DVT prophylaxis: ?Status:?Acute ? ? ? Assessment and plan: LMWH (7) Discharge planning issues: ?Status:?Acute ? ? ? Assessment and plan: She is stable in the ICU for sever hyponatremia monitoring.? History of Present Illness History of Present Illness?Chief Complaint: cough, fever, malaise?Narrative: 62 yo smoker and daily alcohol drinker who has not seen a medical provider in 4- 5 years who presented to [facility] emergency room this afternoon for 8-9 days of cough feverishness, and post-tussive emesis.? Her symptoms started with congestion and rhinorrhea, headache, and cough.? Headache and nasal symptom improved, but cough getting worse.? She feels like her chest is full and she can't bring it up, though she doesn't feel short of breath when she isn't coughing.? When she vomits after coughing, it is watery, no blood or coffee grounds.? She has had 2-3 loose stools/day.? No blood or melena.? She denies any abdominal pain, though she has some general body aches.? She has very little appetites, she has been drinking fluids but she hasn't had much to eat, even crackers are hard to eat.? Regarding her alcohol, she drinks an average of 6 beers a night, a little less since she has been sick.? She denies any history of severe withdrawal or seizures.? She has had sober episodes of 6 months and 5 years in the past, but she doesn't want to quit now.? She also denies any history of low sodium. ? Pt was given 25mL 3% saline after 500mL normal saline, then continued on 10mL/hr.? Sodium went up to 113, so 3% saline was cut to 2.5mL/hr.? After another hour the sodium was 109 again, so the patient was placed back on 10mL/hr 3% saline since then. Patient was treated with DDAVP along with 3% saline with serial monitoring of her electrolytes every 4 hours. Review of her previous records from [facility] revealed that her baseline serum sodium is between 128-135. Work-up in the emergency department included nasal swab for influenza A which came back positive. Because of her cough productive of purulent yellow mucus she was suspected of having bacterial bronchitis was started on prednisone Mucinex Tessalon and Cepacol along with doxycycline and Rocephin. Patient demonstrated symptoms of acute alcohol withdrawal and was treated per phenobarbital protocol. Urine sodium was checked and found to be 15 and therefore SIADH was ruled out. DDAVP was eventually discontinued although hypertonic saline was continued for couple more days. Serum sodium initially went from 119 and dropped down to 116 at which point DDAVP was discontinued but with continued hypertonic saline sodium came up gradually at the time of discharge was up to 130. Patient was initially treated for her bronchitis/possible pneumonia with ceftriaxone and doxycycline but at the time of discharge was sent home on a short course of doxycycline as well as a short course of prednisone. Chest xray in fact did not show any acute pulmonary abnormalities and therefore pneumonia was ruled out. On the day of discharge patient was doing well not requiring any supplemental oxygen and not feeling short of breath and not having any neurologic symptoms from her hyponatremia. She was discharged to home with follow-up with her primary care provider who should repeat her electrolytes next week. Home Meds and New Rx's Prescriptions: New prednisone 20 mg Tablet 40 mg PO DAILY 3 Days Qty: 6 0RF benzonatate 200 mg Capsule 200 mg PO TID PRN (Reason: cough) Qty: 15 0RF Combivent Respimat 20-100 mcg/actuation mist 1 puff inhalation QID PRN (Reason: shortness of breath or wheezing) Qty: 4 0RF Rx Instructions: space evenly during waking hours doxycycline hyclate 100 mg tablet 100 mg PO BID 3 Days Qty: 6 0RF nicotine 21-14-7 mg/24 hr patch, TD daily, sequential See Rx Instructions .ROUTE .COMPLEX Qty: 56 0RF Rx Instructions: apply 1-21 mg NICOTINE PATCH daily for 28 days; follow with 1-14 mg PATCH daily for 14 days, then 1-7mg PATCH daily for 14 days magnesium 250 mg tablet 250 mg PO DAILY Qty: 30 0RF Continued Multivitamin Gummies 200 mcg Tablet,Chewable 2 tab PO DAILY cyanocobalamin (vitamin B-12) 25 mcg Tablet 25 mcg PO DAILY cholecalciferol (vitamin D3) [Vitamin D3] 25 mcg (1,000 unit) Capsule 1,000 unit PO DAILY Discharge Instructions Instructions: Hyponatremia (DC) Additional Instructions: Please refrain from any further alcohol intake. Limit your free water to under 1200 mL/day (3 pints or 48 ounces). This does not count coffee, tea, juices or sodas, just free water. Finish all of your medications as directed. Referrals: Ibis Brandon NP [NURSE PRACTITIONER] - 10/08/22 10:30 am Activity:: Activity as Tolerated Equipment/Supplies:: No Equipment Needed Diet:: limit free water to less than 1200 mL/day Discharge Orders Discharge Orders: Discharge Order (Routine); Ordered 09/24/22 Ordered By: Andreas Isaacs Discharge Data Discharge Date/Time-TO BE ENTERED AT DEPARTURE: 09/24/22 16:07 Discharge Comment: home, friend Jossie hairston bonny DS: Summary Summary Time spent discussing smoking cessation with patient: 3 to 10 minutes Time Spent with Patient providing and/or coordinating discharge services: Greater than 30 minutes Specific discharge activities: Interview/exam of patient; review of discharge instructions, completion of prescriptions/discharge instructions; discussion w/ nursing and CM; documentation of hospital visit Status at Discharge Functional status at discharge: independent ambulation Overall status at discharge: patient is progressing back to baseline Mental Status: mental status grossly normal Speech and Movement: speech and movement normal Mood: congruent mood Affect: normal affect Exam Narrative Exam Narrative: Thin late middle-aged white female sitting up in bed alert and oriented per space time circumstance she has multiple questions regarding her diet her hyponatremia on any medications she needs to go home on. I explained to her that she needs to eat a regular diet avoid toast and tea type diet. She does not need to adjust her sodium intake but I did explain to her that her hyponatremia is likely due to a combination of SIADH from her influenza as well as possible beer Poto ahsan. I did advise her to refrain from further alcohol intake. Lungs are clear to auscultation no rhonchi or wheezing Heart regular rate and rhythm Abdomen soft nondistended nontender Extremities without peripheral cyanosis or edema Extremities without tremors. Psych Mental Status: mental status grossly normal Speech and Movement: speech and movement normal Mood: congruent mood Affect: normal affect DS: Data Vitals/I&O Vitals and I&O: Vital Signs Temperature 36.9 C 09/24/22 12:00 Temperature Source Temporal Artery Scan 09/24/22 12:00 Pulse 75 09/24/22 12:19 Pulse 76 09/24/22 12:19 Respiratory Rate 19 09/24/22 12:19 Respiratory Effort Normal, Non-Labored 09/24/22 12:00 Respiratory Depth Normal 09/24/22 12:00 Respiratory Pattern Normal 09/24/22 12:00 Blood Pressure 153/86 H 09/24/22 12:19 Blood Pressure Mean 100 09/24/22 12:19 Blood Pressure Position Supine 09/24/22 12:00 Pulse Oximetry 97 09/24/22 12:19 Oxygen Delivery Method Room Air 09/24/22 12:00 Oxygen Flow Rate 0 09/24/22 12:00 Pain Level 0 09/24/22 12:00 Comment RN notified 09/23/22 23:35 Intake & Output 09/23/22 09/24/22 09/24/22 23:59 11:59 23:59 Intake Total 1612.167 / 3040.500 618.25 / 868.25 250 / 868.25 Output Total 3000 / 3800 400 / 400 Balance -1387.833 / -759.500 218.25 / 468.25 250 / 468.25 Weight 39.7 kg Intake: IV 562.167 / 1390.500 118.25 / 118.25 Oral 1050 / 1650 500 / 750 250 / 750 Output: Urine 3000 / 3800 400 / 400 Other: Urine Color Yellow Yellow Urine Appearance Clear Clear Urine Odor Normal Normal Comment using bedside commode voids in BSC NANY mixed with stool Stool Size Small Small Stool Characteristics Formed Soft Hard Formed Voiding Methods Bedside Commode Bedside Commode Data Completed and Pending Pending studies at discharge: None Labs on day of discharge: Labs from last 24 hours 09/24/22 09/24/22 09/24/22 10:50 04:10 04:10 WBC 8.43 RBC 4.12 Hgb 12.1 Hct 34.2 L MCV 83 MCH 29.4 MCHC 35.4 RDW 11.5 L Plt Count 322 MPV 9.6 Immature Gran % 0.8 Neutrophils % 50.6 Lymphocytes % 31.0 Monocytes % 17.4 Eosinophils % 0.1 Basophils % 0.1 Nucleated RBC % 0.0 Absolute Neutrophils 4.26 Absolute Lymphocytes 2.61 Absolute Monocytes 1.47 H Absolute Eosinophils 0.01 Absolute Basophils 0.01 Sodium 130 L 129 L Potassium 4.1 3.9 D Chloride 97 L 97 L Carbon Dioxide 25.4 28.3 Anion Gap 7.6 3.7 BUN 5 L 5 L Creatinine 0.6 0.4 L Est GFR (CKD-EPI 2020) 102.06 112.53 Glucose 106 85 Calcium 8.5 8.2 L Magnesium 1.9 09/24/22 09/23/22 09/23/22 00:00 22:05 18:00 WBC RBC Hgb Hct MCV MCH MCHC RDW Plt Count MPV Immature Gran % Neutrophils % Lymphocytes % Monocytes % Eosinophils % Basophils % Nucleated RBC % Absolute Neutrophils Absolute Lymphocytes Absolute Monocytes Absolute Eosinophils Absolute Basophils Sodium Cancelled 125 L Cancelled Potassium Cancelled 5.5 H Cancelled Chloride Cancelled 94 L Cancelled Carbon Dioxide Cancelled 25.8 Cancelled Anion Gap Cancelled 5.2 Cancelled BUN Cancelled 7 Cancelled Creatinine Cancelled 0.5 L Cancelled Est GFR (CKD-EPI 2020) Cancelled 106.64 Cancelled Glucose Cancelled 102 Cancelled Calcium Cancelled 8.4 L Cancelled Magnesium 09/23/22 15:56 WBC RBC Hgb Hct MCV MCH MCHC RDW Plt Count MPV Immature Gran % Neutrophils % Lymphocytes % Monocytes % Eosinophils % Basophils % Nucleated RBC % Absolute Neutrophils Absolute Lymphocytes Absolute Monocytes Absolute Eosinophils Absolute Basophils Sodium 120 L* Potassium 4.7 Chloride 90 L Carbon Dioxide 23.5 Anion Gap 6.5 BUN 6 L Creatinine 0.4 L Est GFR (CKD-EPI 2020) 112.53 Glucose 115 H Calcium 7.8 L Magnesium PFSH All Active Problems Bronchitis (Acute) Malnutrition (Acute) Alcohol use disorder (Acute) Influenza A (Acute) Smoker (Acute) Surgical History S/P section Family History Brother Heart disease 2 brothers in 40s Mother Dementia Social History Smoking/Tobacco Use Status: Current every day Counseling given: provider counseling and counseling >3 minutes Smoking risk assessment performed?: Yes Alcohol Intake: current Alcohol Intake frequency: 3 or more drinks per day Alcohol type: beer Counseling given: Yes Counseling provided: reduce to 2 or less/day and support program Substance use type: does not use Additional Social history: Moved from [facility] to [facility] 2019, now living with Mother in [place] and serving as her caregiver. 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 Time Spent with Patient Time Spent with Patient: <45 minutes Time was spent: preparing to see the patient(eg.review tests), ordering medications,tests, procedures, indepentently interpreting results, counseling the patient and care coordination
--- NOTE | 2022-09-24 17:13 | CMDISCH_ITS ---
- If Service Date Differs Date of service: 09/24/22 Time of Service: 17:13 LACE Index Scoring Tool - Questions: Length of Stay (in days): 4 - 6 Acuity (Admit via E.D.?): Yes E.D. Visits: 0 - Answers: Total Score: 7 Risk of Readmission: Low Risk Care Management Discharge Reason for Hospitalization: Hyponatremia Discharge Plan: Haydee returned home today with no new services. CM discussed recovery options such as the head athletic trainer/strength coach and local treatment facilities, which she declined. She will be driven home via private vehicle by a friend. She will follow up with her PCP and discharge plan of care. She is happy to be going home. Patient/Family Education Needs: Review discharge instructions and limitations, discussion of self care needs including ask me three.
--- NOTE | 2022-09-26 09:34 | PT.DS ---
PT Diagnosis: Extended stay weakness MD Diagnosis: Hyponatremia, Influenza Weeks Elapsed: week(s) and 0 day(s) Patient Location: Intensive Care Unit Referring Provider: Date of Service: September 26, 2022 9:34 am PT Notes Visit Reasons: Severe Hyponatremia, Influenza Physical Therapy Inpatient Initial Evaluation Date: 09/24/2022 Dates of Service: 09/23/2022 only This is a clinical summary of care provided for the duration of dates listed above. No charge was made in the completion of this documentation. Referring Doctor: Heather Gaines MD PT Orders: PT CONSULT: Limited ability Precautions: Fall. Standard. Activity as tolerated. Patient Profile/Admitting Diagnosis:? Haydee is a 62-year-old female who presented to the ED for symptoms of cough, fever, and emesis and admitted for management of hyponatremia, influenza A, EtOH use disorder, smoking, and alcoholic hepatitis. PMHX: All Active Problems?(Updated 09/19/22 @ 23:31 by Kevin Foster) Discharge planning issues (Acute) DVT prophylaxis (Acute) Alcoholic hepatitis (Acute) Smoker (Acute) Hyponatremia (Acute) Alcohol use disorder (Acute) Influenza A (Acute) Surgical History? S/P section Social History/Home Situation: Lives with mother in a private home.? Patient is her mother's caregiver until patient got sick.? Independent with all aspects of ADLs prior to admission. Equipment Owned/DME: None Subjective: NT. See most recent SHOPPING INVESTIGATOR notes. Objective: General Observation: NT. See most recent SHOPPING INVESTIGATOR notes. Mental Status: NT. See most recent SHOPPING INVESTIGATOR notes. Pain: NT. See most recent SHOPPING INVESTIGATOR notes. Vital Signs: NT. See most recent SHOPPING INVESTIGATOR notes. ROM: Right Upper Extremity: ? Shoulder Flexion WFL. Shoulder abduction WFL. Elbow flexion WFL. Wrist flexion WFL. Functional opening and closing of hand WFL. Left Upper Extremity:? Shoulder Flexion WFL. Shoulder abduction WFL. Elbow flexion WFL. Wrist flexion WFL. Functional opening and closing of hand WFL. Right Lower Extremity: Hip flexion WFL. Hip abduction WFL. Knee flexion WFL. Ankle dorsiflexion WFL. Ankle plantarflexion WFL. Left Lower Extremity: Hip flexion WFL. Hip abduction WFL. Knee flexion WFL. Ankle dorsiflexion WFL. Ankle plantarflexion WFL. Strength: Right Upper Extremity: Shoulder flexors 4/5. Shoulder abductors 4/5. Elbow flexors 5/5. Elbow extensors 5/5. Cardiac Specialist strong. Left Upper Extremity: Shoulder flexors 4/5. Shoulder abductors 4/5. Elbow flexors 5/5. Elbow extensors 5/5. Cardiac Specialist strong. Right Lower Extremity: Hip flexors 4/5. Hip abductors 4/5. Knee flexors 5/5. Knee extensors 5/5. Ankle dorsiflexors 5/5. Ankle plantarflexors 5/5. Left Lower Extremity: Hip flexors 4/5. Hip abductors 4/5. Knee flexors 5/5. Knee extensors 5/5. Ankle dorsiflexors 5/5. Ankle plantarflexors 5/5. Bed Mobility/Transfers: Supine to sit independent Sit to supine independent Sit to stand supervision Stand to sit supervision Bed to bedside commode supervision Bedside commode to bed supervision Gait: Instructed patient with level surface ambulation of 5 steps requiring stand by assist without AD. refused to walk further as she needed to finish taking her pills.? Balance: Static Sitting: Normal Dynamic Sitting: Normal Static Standing: Normal Dynamic Standing: Good Special Tests: Mobility Limitations Standardized Measure [facility] 6 clicks Basic Mobility Inpatient Short Form: Raw Score: 23? CMS Score: 11% deficit? ? ? Informed Consent/Education:? Patient was instructed in purpose of PT consult and plan of care. Agreeable to proceed with established PT POC to achieve personal goals. Assessment: Will plan to do 1-2 more session to ensure that patient is safe to be independent in her room or in the hallway without AD before discharge from PT. Patient presents with clinical signs and symptoms consistent with current/admitting diagnoses that have resulted to mobility limitations as demonstrated by the following impairment level findings: 1.? Impaired activity tolerance Impairments are contributing to the following functional limitations: 1.? Increased completion time for mobility ADL performance 2.? Increased risk for falls 3.? Difficulty with managing steps alone safely Patient is assessed as a 09901 low complexity based on the following: History: 62-year-old female with past medical history as indicated above Examination: Demonstrable impairment in strength, balance, and mobility level with underlying impairments and functional limitations as exhibited above as well as deficit score of 11% utilizing the [facility] Mobility Inpatient Short Form Presentation: Evolving Decision Makin moderate complexity Goals: Goals X1 week 1. Independent gait on level surface with use of no AD for at least 300 feet without report of pain nor dyspnea NOT MET 2. Independent stair negotiation while holding onto B rails for at least 5 steps without report of pain nor dyspnea NOT MET DISCHARGE RECOMMENDATIONS: [] ? Home with no services [] [] ? Home with services [specify] [] ? Home with outpatient PT [] [] ? SNF for continued rehabilitation [] [] ? Retirement Care [] [] ? SNF versus LTC based on ability to participate and progress [] [X]? HH PT vs.? no services depennding on progress towards goals. Patient being discharged at independent level for all mobility ADL performance. Declined HH PT services. TREATMENT CODE/TIME: MI Thank you for the opportunity to participate in the care of this patient. Rosemarie Roy PT, DPT, CLT [facility] [place], [place]
== END 2022-09-24 16:07 | disposition home or self-care (01) | DRG 641 ==
PROVIDERS: Family Medicine; Internal Medicine; Admitting Provider Family Medicine; Visit Provider Family Medicine
DX: E87.1 Hypo-osmolality and hyponatremia (principal); J44.0 Chronic obstructive pulmonary disease with (acute) lower respiratory infection; E46 Unspecified protein-calorie malnutrition; Z68.1 Body mass index [BMI] 19.9 or less, adult; F10.239 Alcohol dependence with withdrawal, unspecified; F17.210 Nicotine dependence, cigarettes, uncomplicated; K70.10 Alcoholic hepatitis without ascites; J10.1 Influenza due to other identified influenza virus with other respiratory manifestations; J20.9 Acute bronchitis, unspecified; E83.42 Hypomagnesemia; E87.6 Hypokalemia
CPT/HCPCS: 36558; 36410; 36415; 36592; 71045; 76942; 80048; 80053; 80076; 84145; 97162; J1650; 80184; 82607; 82746; 83735; 84100; 84295; 85025; 85610; 94640; 94667; 94668; 99239; 99291; J0696; J2560; J2597; J3475; J3480; J3490; J7060; J7512; J7620